=== PATIENT | female | born 1975 | race Hispanic/Latino ===

== ENCOUNTER 2018-10-03 16:58 | Emergency (ER) | payer SELFPAY ==
--- NOTE | 2018-10-03 17:30 | EDPHYS ---
Physician Documentation [facility] Name: Heaven Sun Age: 43 yrs Sex: Female : 1975 Arrival Date: 10/03/2018 Time: 17:01 Bed 27 Private MD: ED Physician Adrián Parks HPI: 10/03 17:25 This 43 yrs old Female presents to ER via Ambulatory with complaints of cp Vaginal Itching. 17:25 The patient presents with vaginal itching. Onset: The symptoms/episode began/occurred 2 cp week(s) ago. Associated signs and symptoms: Pertinent negatives: fever, vaginal bleeding, abdominal pain. Severity of symptoms: in the emergency department the symptoms are unchanged, despite home interventions. Patient has no concerns for STDs and reports similar symptoms in the past that were due to yeast infection. Patient reports she is unable use OTC creams due to allergy. 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 - Social history:: Smoking status: Patient/guardian denies using tobacco. - Ebola Screening: : No symptoms or risks identified at this time. ROS: 17:26 Constitutional: Negative for body aches, chills, fever, poor PO intake. cp 17:26 Eyes: Negative for injury, pain, redness, and discharge. cp 17:26 ENT: Negative for drainage from ear(s), ear pain, sore throat, difficulty swallowing, difficulty handling secretions. 17:26 Cardiovascular: Negative for chest pain, palpitations. 17:26 Respiratory: Negative for cough, shortness of breath, wheezing. 17:26 Abdomen/GI: Negative for abdominal pain, nausea, vomiting, and diarrhea. 17:26 Back: Negative for pain at rest, pain with movement. 17:26 : Positive for vaginal itching, Negative for urinary symptoms, vaginal discharge. 17:26 Skin: Negative for rash. 17:26 All other systems are negative. Exam: 17:27 Constitutional: The patient appears in no acute distress, alert, awake, well developed, cp well nourished. 17:27 Head/Face: Normocephalic, atraumatic. cp 17:27 Respiratory: the patient does not display signs of respiratory distress, Respirations: normal. 17:27 Abdomen/GI: Exam negative for discomfort, distension, guarding, Inspection: abdomen appears normal. 17:27 : Pelvic Exam: the exam is deferred. Vital Signs: 17:06 BP 130 / 70; Pulse 85; Resp 16 S; Temp 97.8(TE); Pulse Ox 99% on R/A; Weight 71.67 kg aa5 (R); Height 5 ft. 2 in. (157.48 cm) (R); Pain 0/10; 17:43 BP 131 / 70; Pulse 80; Resp 18; Temp 98; Pulse Ox 100% on R/A; Pain 0/10; mg2 17:06 Body Mass Index 28.90 (71.67 kg, 157.48 cm) aa5 MDM: 17:13 Patient medically screened. cp 17:29 Differential diagnosis: pelvic inflammatory disease, urinary tract infection, cp vaginosis, STD. 17:29 Data reviewed: vital signs, nurses notes, and as a result, I will discharge patient. cp Counseling: I had a detailed discussion with the patient and/or guardian regarding: the historical points, exam findings, and any diagnostic results supporting the discharge/admit diagnosis, to return to the emergency department if symptoms worsen or persist or if there are any questions or concerns that arise at home. Administered Medications: No medications were administered Disposition: 17:46 Co-signature as Attending Physician, Adrián Parks MD I agree with the assessment and kdr plan of care. Disposition: 10/03/18 17:29 Discharged to Home. Impression: Candidiasis of vulva and vagina. - Condition is Stable. - Discharge Instructions: Vaginal Yeast Infection, Adult. - Prescriptions for Diflucan 150 mg Oral Tablet - take 1 tablet by ORAL route one time As needed take second tablet 2 days later if symptoms continue; 2 tablet. - Medication Reconciliation Form, Thank You Letter, Antibiotic Education, Prescription Opioid Use form. - Follow up: Private Physician; When: 2 - 3 days; Reason: Worsening of condition. - Problem is new. - Symptoms are unchanged. Signatures: Adrián Parks MD MD kdr Dawn Oneal RN RN aa5 Robb Wagner PA PA cp Glen Christopher RN RN mg2 Corrections: (The following items were deleted from the chart) 17:44 17:29 10/03/2018 17:29 Discharged to Home. Impression: Candidiasis of vulva and vagina. mg2 Condition is Stable. Forms are Medication Reconciliation Form, Thank You Letter, Antibiotic Education, Prescription Opioid Use. Follow up: Private Physician; When: 2 - 3 days; Reason: Worsening of condition. Problem is new. Symptoms are unchanged. cp
--- NOTE | 2018-10-03 17:30 | ER ---
Nurse's Notes [facility] Name: Heaven Sun Age: 43 yrs Sex: Female : 1975 Arrival Date: 10/03/2018 Time: 17:01 Bed 27 Private MD: Diagnosis: Candidiasis of vulva and vagina Presentation: 10/03 17:05 Presenting complaint: Patient states: "I have a yeast infection". Transition of care: aa5 patient was not received from another setting of care. Onset of symptoms was September 2018. Risk Assessment: Do you want to hurt yourself or someone else? Patient reports no desire to harm self or others. Initial Sepsis Screen: Does the patient meet any 2 criteria? No. Patient's initial sepsis screen is negative. Does the patient have a suspected source of infection? No. Patient's initial sepsis screen is negative. Care prior to arrival: None. 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 - Social history:: Smoking status: Patient/guardian denies using tobacco. - Ebola Screening: : No symptoms or risks identified at this time. Screenin:42 Abuse screen: Denies threats or abuse. Denies injuries from another. Nutritional mg2 screening: No deficits noted. Tuberculosis screening: No symptoms or risk factors identified. Fall Risk None identified. Assessment: 17:43 General: Appears in no apparent distress. comfortable, Behavior is calm, cooperative. mg2 Pain: Denies pain. : Reports vaginal itching, since today. Vital Signs: 17:06 BP 130 / 70; Pulse 85; Resp 16 S; Temp 97.8(TE); Pulse Ox 99% on R/A; Weight 71.67 kg aa5 (R); Height 5 ft. 2 in. (157.48 cm) (R); Pain 0/10; 17:43 BP 131 / 70; Pulse 80; Resp 18; Temp 98; Pulse Ox 100% on R/A; Pain 0/10; mg2 17:06 Body Mass Index 28.90 (71.67 kg, 157.48 cm) aa5 ED Course: 17:01 Patient arrived in ED. mr 17:04 Arm band placed on. aa5 17:05 Triage completed. aa5 17:11 Glen Christopher, RN is Primary Nurse. mg2 17:13 Robb Wagner PA is PHCP. cp 17:13 Adrián Parks MD is Attending Physician. cp 17:42 No provider procedures requiring assistance completed. Patient did not have IV access mg2 during this emergency room visit. 17:43 Patient has correct armband on for positive identification. mg2 Administered Medications: No medications were administered Outcome: 17:29 Discharge ordered by . cp 17:43 Discharged to home ambulatory. mg2 17:43 Condition: stable 17:43 Discharge instructions given to patient, Instructed on discharge instructions, follow up and referral plans. medication usage, Demonstrated understanding of instructions, follow-up care, medications, Prescriptions given X 1. 17:44 Patient left the ED. mg2 Signatures: Shilpa Motley mr OnealDawn, RN RN aa5 Robb Wagner PA PA cp Glen Christopher, RN RN mg2
== END 2018-10-03 17:44 | disposition home or self-care (01) ==
LOC: ER 16:58
DX: B37.3 Candidiasis of vulva and vagina (principal)
CPT/HCPCS: 99282

== ENCOUNTER 2018-11-24 19:50 | Emergency (ER) | payer SELFPAY ==
--- OUTSIDE RECORDS SUMMARY | 2018-11-24 19:52 | XMS REPORT ---
:1975 [facility] Address [address] [place] [address] Care Team Providers Name Role Phone WINSOME HALEY Unavailable Unavailable Payers Payer Name Policy Type Policy Number Effective Date Expiration Date Problems This patient has no known problems. Allergies, Adverse Reactions, Alerts Allergy Name Allergy Status Severity Reaction(s) Onset Inactive Treating Comments Type Date Date Clinician hydrocodone DA Active PA 2018-01 00:00:0 0 Penicillins DA Active PA 2018-01 00:00:0 0 hydrocodone DA Active PA 2013-02 00:00:0 0 Penicillins DA Active PA 2013-02 00:00:0 0 Medications This patient has no known medications. Results Test Description Test Time Test Comments Text Results Atomic Results Result Comments URINALYSIS W/ REFLEX URINE CULTURE 2017-04-11 01:40:00 Test Item Value Reference Range Comments COLOR (BEAKER) (test ixas=819) Yellow CLARITY (BEAKER) (test uyaj=724) Clear SPECIFIC GRAVITY UA (BEAKER) (test hcrs=417) 1.016 1.001-1.035 PH UA (BEAKER) (test iiwj=600) 6.0 5.0-8.0 PROTEIN UA (BEAKER) (test nqug=985) Negative Negative GLUCOSE UA (BEAKER) (test fsnc=751) Negative Negative KETONES UA (BEAKER) (test ujpb=235) Negative Negative BILIRUBIN UA (BEAKER) (test ifdz=962) Negative Negative BLOOD UA (BEAKER) (test gyvx=319) Large Negative NITRITE UA (BEAKER) (test wkhh=979) Negative Negative LEUKOCYTE ESTERASE UA (BEAKER) (test jtoj=604) Negative Negative UROBILINOGEN UA (BEAKER) (test fian=383) < mg/dL 0.2-1.0 RBC UA (BEAKER) (test ilgy=732) 270 /HPF WBC UA (BEAKER) (test jrbf=342) 2 /HPF MUCUS (BEAKER) (test gfrv=8382) Rare SQUAMOUS EPITHELIAL (BEAKER) (test qigp=470) < /HPF SOURCE(BEAKER) (test wdhl=2101) SCREEN, [id number] 01:32:00 Test Item Value Reference Range Comments TEST URINE (BEAKER) (test pqls=541) Negative RAD, CHEST, 2 [id number] 01:14:00Reason for exam:->FEVERReason for exam: ->COUGHFINAL REPORT EXAMINATION: 2 VIEW CHEST CLINICAL INDICATION: Fever, cough IMPRESSION: Compared with 01/23/2013. No evidence of focal lung consolidation, pulmonary edema or pleural effusion. The heart size is normal. Mediastinal contours are sharp and stable. No evidence of an acute osseous abnormality or pneumothorax. In summary, no radiographic evidence of an acute cardiopulmonary process. Signed: [facility]elle [facility] Verified Date/Time: 04/11/2017 01:14:46 Reading Location: [address] Reading Room Electronically signed by: BRIELLE MCDONOUGH M.D. on 01:14 AMRAPID INFLUENZA A&B [id number] 00:29:00 Test Item Value Reference Range Comments RAPID INFLUENZA A AG (BEAKER) (test uvpg=4779) Positive Negative RAPID INFLUENZA B AG (BEAKER) (test plsd=6574) Negative Negative
--- OUTSIDE RECORDS SUMMARY | 2018-11-24 19:52 | XMS REPORT | Clinical Summary ---
:1975 Author Organization [facility] Address [address] [place] [address] Care Team Providers Name Role Phone Kelvin Garcia MD Primary Care Provider Allergies Active Allergy Reactions Severity Noted Date Comments Cephalexin 04/11/2013 Penicillins Swelling 01/23/2013 Hydrocodone-Acetaminophen Swelling 01/23/2013 Medications Medication Sig Dispensed Refills Start Date End Date Status ALPRAZolam (XANAX) Take 0.25 mg by 0 Active 0.25 MG tablet mouth every night as needed. ALPRAZolam (XANAX) Take 1 tablet 10 tablet 0 07/22/2014 Active 0.25 MG tablet (0.25 mg total) by mouth every night as needed for Anxiety. Active Problems Not on file Social History Tobacco Use Types Packs/Day Years Used Date Never Smoker Alcohol Use Drinks/Week oz/Week Comments Yes 2 Glasses of wine 3.6 week 2 Cans of beer 2 Shots of liquor Sex Assigned at Date Recorded Not on file Job Start Date Occupation Industry Not on file Not on file Not on file Travel History Travel Start Travel End No recent travel history available. Last Filed Vital Signs Not on file Plan of Treatment Not on file Results Not on fileafter 11/23/2017
[2018-11-24 20:52] LABS: Urine Culture Reflex Order REFLEXED
[2018-11-24 20:53] LABS: Urine Bacteria 20-50 /HPF (<20); Urine RBC <5 /HPF (NONE SEEN)
--- NOTE | 2018-11-24 21:05 | EDPHYS ---
Physician Documentation [facility] Name: Heaven Sun Age: 43 yrs Sex: Female : 1975 Arrival Date: 11/24/2018 Time: 19:52 Bed 13 Private MD: ED Physician Galindo Zepeda HPI: 11/24 20:44 This 43 yrs old Female presents to ER via Ambulatory with complaints of kb Vaginal Itching. 20:44 The patient presents with perineal itching, vaginal discharge, that is white discharge, kb patient has had similar discharge in the past. Onset: The symptoms/episode began/occurred 5 day(s) ago. Modifying factors: The symptoms are alleviated by nothing, the symptoms are aggravated by nothing. Associated signs and symptoms: Pertinent positives: vaginal discharge, vaginal itching. Severity of symptoms: At their worst the symptoms were moderate, in the emergency department the symptoms are unchanged. The patient has not experienced similar symptoms in the past. The patient has not recently seen a physician. Pt reports vaginal itching, white discharge, and irritation for 5 days. Feels like yeast infection she has had in the past. 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 - Social history:: Smoking status: Patient/guardian denies using tobacco. - Ebola Screening: : No symptoms or risks identified at this time. ROS: 22:38 Constitutional: Negative for fever, chills, and weight loss, Neck: Negative for injury, kb pain, and swelling, Cardiovascular: Negative for chest pain, palpitations, and edema, Respiratory: Negative for shortness of breath, cough, wheezing, and pleuritic chest pain, Abdomen/GI: Negative for abdominal pain, nausea, vomiting, diarrhea, and constipation, Back: Negative for injury and pain, MS/Extremity: Negative for injury and deformity, Skin: Negative for injury, rash, and discoloration, Neuro: Negative for headache, weakness, numbness, tingling, and seizure. 22:38 : Positive for vaginal discharge, vaginal itching. Exam: 22:38 Constitutional: This is a well developed, well nourished patient who is awake, alert, kb and in no acute distress. Head/Face: Normocephalic, atraumatic. ENT: Nares patent. No nasal discharge, no septal abnormalities noted. Tympanic membranes are normal and external auditory canals are clear. Oropharynx with no redness, swelling, or masses, exudates, or evidence of obstruction, uvula midline. Mucous membranes moist. Neck: Trachea midline, no thyromegaly or masses palpated, and no cervical lymphadenopathy. Supple, full range of motion without nuchal rigidity, or vertebral point tenderness. No Meningismus. Chest/axilla: Normal chest wall appearance and motion. Nontender with no deformity. No lesions are appreciated. Cardiovascular: Regular rate and rhythm with a normal S1 and S2. No gallops, murmurs, or rubs. Normal PMI, no JVD. No pulse deficits. Respiratory: Lungs have equal breath sounds bilaterally, clear to auscultation and percussion. No rales, rhonchi or wheezes noted. No increased work of breathing, no retractions or nasal flaring. Abdomen/GI: Soft, non-tender, with normal bowel sounds. No distension or tympany. No guarding or rebound. No evidence of tenderness throughout. Skin: Warm, dry with normal turgor. Normal color with no rashes, no lesions, and no evidence of cellulitis. MS/ Extremity: Pulses equal, no cyanosis. Neurovascular intact. Full, normal range of motion. Neuro: Awake and alert, GCS 15, oriented to person, place, time, and situation. Cranial nerves II-XII grossly intact. Motor strength 5/5 in all extremities. Sensory grossly intact. Cerebellar exam normal. Normal gait. Vital Signs: 20:08 BP 116 / 63; Pulse 80; Resp 16; Temp 98; Pulse Ox 99% on R/A; Weight 61.23 kg (R); ak1 Height 5 ft. 2 in. (157.48 cm) (R); Pain 10/10; 20:08 Body Mass Index 24.69 (61.23 kg, 157.48 cm) ak1 MDM: 20:16 Patient medically screened. kb 22:38 Data reviewed: vital signs, nurses notes. Data interpreted: Pulse oximetry: on room air kb is 99 %. Interpretation: normal. Counseling: I had a detailed discussion with the patient and/or guardian regarding: the historical points, exam findings, and any diagnostic results supporting the discharge/admit diagnosis, the need for outpatient follow up, an OB/Gyne specialist, to return to the emergency department if symptoms worsen or persist or if there are any questions or concerns that arise at home. 11/24 20:17 Order name: Urine Microscopic Only; Complete Time: 20:55 kb 11/24 20:17 Order name: Urine Dipstick-Ancillary (obtain specimen); Complete Time: 20:28 kb Administered Medications: 21:18 Drug: DiFLUcan 150 mg Route: PO; aa1 21:19 Follow up: Response: No adverse reaction; Medication administered at discharge. aa1 Disposition: 11/25 07:08 Available for consultation at all times.. ps1 Disposition: 11/24/18 21:05 Discharged to Home. Impression: Candidiasis of vulva and vagina. - Condition is Stable. - Discharge Instructions: Vaginal Yeast Infection, Adult. - Prescriptions for Diflucan 150 mg Oral Tablet - take 1 tablet by ORAL route one time for 1 day; 1 tablet. - Medication Reconciliation Form, Thank You Letter, Antibiotic Education, Prescription Opioid Use form. - Follow up: Emergency Department; When: As needed; Reason: Worsening of condition. Follow up: Private Physician; When: 2 - 3 days; Reason: Recheck today's complaints, Continuance of care, Re-evaluation by your physician. Signatures: Dispatcher [employer] EDAL Sabina Soto, TANGELA-C CARGO SERVICE SUPERVISOR-Lexus Holloway RN RN aa1 Thalia Reeder RN RN ak1 Galindo Zepeda MD MD ps1 Corrections: (The following items were deleted from the chart) 11/24 21:19 21:05 11/24/2018 21:05 Discharged to Home. Impression: Candidiasis of vulva and vagina. aa1 Condition is Stable. Forms are Medication Reconciliation Form, Thank You Letter, Antibiotic Education, Prescription Opioid Use. Follow up: Emergency Department; When: As needed; Reason: Worsening of condition. Follow up: Private Physician; When: 2 - 3 days; Reason: Recheck today's complaints, Continuance of care, Re-evaluation by your physician. kb
--- NOTE | 2018-11-24 21:05 | ER ---
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 [place] laundry soap. Transition of care: patient was not received from another setting of care. Onset of symptoms is unknown. Risk Assessment: Do you want to hurt yourself or someone else? Patient reports no desire to harm self or others. Initial Sepsis Screen: Does the patient meet any 2 criteria? No. Patient's initial sepsis screen is negative. Does the patient have a suspected source of infection? No. Patient's initial sepsis screen is negative. Care prior to arrival: None. 20:09 Method Of Arrival: Ambulatory ak1 20:09 Acuity: ABIGAIL 4 ak1 Triage Assessment: 20:11 General: Appears in no apparent distress. Behavior is calm, cooperative. 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 - Social history:: Smoking status: Patient/guardian denies using tobacco. - Ebola Screening: : No symptoms or risks identified at this time. Screenin:30 Abuse screen: Denies threats or abuse. Denies injuries from another. Nutritional aa1 screening: No deficits noted. Tuberculosis screening: No symptoms or risk factors identified. Fall Risk None identified. Assessment: 20:30 General: Appears in no apparent distress. comfortable, Behavior is calm, cooperative, aa1 appropriate for age. Pain: Denies pain. Neuro: Level of Consciousness is awake, alert, obeys commands, Oriented to person, place, time, situation, Moves all extremities. Full function Gait is steady. Respiratory: Airway is patent Respiratory effort is even, unlabored, Respiratory pattern is regular, symmetrical. GI: No signs and/or symptoms were reported involving the gastrointestinal system. : Reports discharge, from vagina that is white, vaginal itching. EENT: No signs and/or symptoms were reported regarding the EENT system. Derm: Skin is intact, is healthy with good turgor, Skin is pink, warm \T\ dry. Musculoskeletal: Circulation, motion, and sensation intact. Capillary refill < 3 seconds. 21:17 Reassessment: Patient appears in no apparent distress at this time. Patient is alert, aa1 oriented x 3, equal unlabored respirations, skin warm/dry/pink. Discussed d/c \T\ f/u instructions with pt; denies questions or concerns at this time. Vital Signs: 20:08 BP 116 / 63; Pulse 80; Resp 16; Temp 98; Pulse Ox 99% on R/A; Weight 61.23 kg (R); ak1 Height 5 ft. 2 in. (157.48 cm) (R); Pain 10/10; 20:08 Body Mass Index 24.69 (61.23 kg, 157.48 cm) ak1 ED Course: 19:52 Patient arrived in ED. ag3 20:08 Arm band placed on Patient placed in waiting room, Patient notified of wait time. ak1 20:10 Triage completed. ak1 20:15 Sabina Soto FNP-C is [facility]. kb 20:15 Galindo Zepeda MD is Attending Physician. kb 20:30 Patient has correct armband on for positive identification. Bed in low position. Call aa1 light in reach. Pulse ox on. NIBP on. 20:30 No provider procedures requiring assistance completed. Patient did not have IV access aa1 during this emergency room visit. 21:10 Lexus Rivera, SILKE is Primary Nurse. aa1 Administered Medications: 21:18 Drug: DiFLUcan 150 mg Route: PO; aa1 21:19 Follow up: Response: No adverse reaction; Medication administered at discharge. aa1 Outcome: 21:05 Discharge ordered by . kb 21:17 Discharged to home ambulatory. aa1 21:17 Condition: good 21:17 Discharge instructions given to patient, Instructed on discharge instructions, follow up and referral plans. medication usage, Demonstrated understanding of instructions, follow-up care, medications, Prescriptions given X 1. 21:19 Patient left the ED. aa1 Signatures: Sabina Soto, KARIN HONEYCUTT-Lexus Holloway RN RN aa1 Thalia Reeder RN RN ak1 Jenelle Okeefe ag3
[2018-11-24] MEDS ORDERED: FLUCONAZOLE 100 MG TAB ONE (21:17)
== END 2018-11-24 21:19 | disposition home or self-care (01) ==
LOC: ER 19:50
DX: B37.3 Candidiasis of vulva and vagina (principal); Z88.0 Allergy status to penicillin
CPT/HCPCS: 81015; 99283

== ENCOUNTER 2019-06-22 11:18 | Emergency (ER) | payer BC, SELFPAY ==
--- OUTSIDE RECORDS SUMMARY | 2019-06-22 11:20 | XMS REPORT ---
:1975 [facility] Address [address] [place] [address] Care Team Providers Name Role Phone WINSOME HALEY Unavailable Unavailable Payers Payer Name Policy Type Policy Number Effective Date Expiration Date Problems This patient has no known problems. Allergies, Adverse Reactions, Alerts Allergy Name Allergy Status Severity Reaction(s) Onset Inactive Treating Comments Type Date Date Clinician hydrocodone DA Active CT 2018-01 00:00:0 [address] 2018-01 00:00:0 [address] 2013-02 00:00:0 [address] 2013-02 00:00:0 0 Medications This patient has no known medications. Results Test Description Test Time Test Comments Text Results Atomic Results Result Comments URINALYSIS W/ REFLEX URINE CULTURE 2017-04-11 01:40:00 Test Item Value Reference Range Comments COLOR (BEAKER) (test jook=014) Yellow CLARITY (BEAKER) (test ctim=620) Clear SPECIFIC GRAVITY UA (BEAKER) (test drdx=025) 1.016 1.001-1.035 PH UA (BEAKER) (test hcuw=292) 6.0 5.0-8.0 PROTEIN UA (BEAKER) (test pphq=387) Negative Negative GLUCOSE UA (BEAKER) (test irsn=300) Negative Negative KETONES UA (BEAKER) (test ljhd=822) Negative Negative BILIRUBIN UA (BEAKER) (test nbqz=682) Negative Negative BLOOD UA (BEAKER) (test bxsp=990) Large Negative NITRITE UA (BEAKER) (test akff=912) Negative Negative LEUKOCYTE ESTERASE UA (BEAKER) (test lyml=788) Negative Negative UROBILINOGEN UA (BEAKER) (test mipr=934) < mg/dL 0.2-1.0 RBC UA (BEAKER) (test unrt=698) 270 /HPF WBC UA (BEAKER) (test hwhs=659) 2 /HPF MUCUS (BEAKER) (test jwii=2635) Rare SQUAMOUS EPITHELIAL (BEAKER) (test vfgi=178) < /HPF SOURCE(BEAKER) (test gdwm=4718) SCREEN, [id number] 01:32:00 Test Item Value Reference Range Comments TEST URINE (BEAKER) (test ljiu=999) Negative RAD, CHEST, 2 [id number] 01:14:00Reason for exam:->FEVERReason for exam: ->COUGHFINAL REPORT EXAMINATION: 2 VIEW CHEST CLINICAL INDICATION: Fever, cough IMPRESSION: Compared with 01/23/2013. No evidence of focal lung consolidation, pulmonary edema or pleural effusion. The heart size is normal. Mediastinal contours are sharp and stable. No evidence of an acute osseous abnormality or pneumothorax. In summary, no radiographic evidence of an acute cardiopulmonary process. Signed: [facility] Verified Date/Time: 04/11/2017 01:14:46 Reading Location: [address] Reading Room Electronically signed by: BRIELLE MCDONOUGH M.D. on 01:14 AMRAPID INFLUENZA A&B [id number] 00:29:00 Test Item Value Reference Range Comments RAPID INFLUENZA A AG (BEAKER) (test etne=2808) Positive Negative RAPID INFLUENZA B AG (BEAKER) (test mtsz=3785) Negative Negative
--- NOTE | 2019-06-22 13:01 | ER ---
Nurse's Notes [facility] Name: Heaven Sun Age: 44 yrs Sex: Female : 1975 Arrival Date: 06/22/2019 Time: 11:20 Bed Waiting Private MD: Diagnosis: Presentation: 06/21 11:27 Chief complaint: Patient states: L low back pain that radiates down L leg x 1 week. ss Coronavirus screen: The patient has NOT traveled to [place] in the past 14 days. Proceed with normal triage procedures. Ebola Screen: Patient denies exposure to infectious person. Patient denies travel to an Ebola-affected area in the 21 days before illness onset. Initial Sepsis Screen: Does the patient meet any 2 criteria? No. Patient's initial sepsis screen is negative. Does the patient have a suspected source of infection? No. Patient's initial sepsis screen is negative. Risk Assessment: Do you want to hurt yourself or someone else? Patient reports no desire to harm self or others. 11:27 Method Of Arrival: Ambulatory 11:27 Acuity: ABIGAIL 4 ss Assessment: 12:44 Reassessment: Called patient to exam room. No answer. Unable to locate patient in ER ss [facility] or restrooms. 12:57 Reassessment: No answer, unable to locate patient. 12:59 Reassessment: called patient from [facility], no answer. Vital Signs: 11:27 Resp 16; Temp 98.0(TE); Weight 65.77 kg; Height 5 ft. 2 in. (157.48 cm); Pain 10/10; ss 11:28 BP 115 / 81; Pulse 94; Pulse Ox 99% on R/A; ss 11:27 Body Mass Index 26.52 (65.77 kg, 157.48 cm) ED Course: 11:20 Patient arrived in ED. mr 11:28 Triage completed. ss 11:28 Arm band placed on right wrist. 12:59 No provider procedures requiring assistance completed. Patient did not have IV access ss during this emergency room visit. Administered Medications: No medications were administered Outcome: 12:59 Eloped from waiting room, before seeing physician ss 13:00 Patient left the ED. Signatures: Shilpa Motley Shelby, RN RN
[2019-06-22 13:05] VITALS: TEMP 98
[2019-06-22 13:06] VITALS: BP 115/81; O2SAT 99
== END 2019-06-22 13:00 | disposition left against medical advice (07) ==
LOC: ER 11:18
DX: M54.5 Low back pain (principal); Z53.21 Procedure and treatment not carried out due to patient leaving prior to being seen by health care provider
CPT/HCPCS: 99281

== ENCOUNTER 2020-04-24 22:09 | Emergency (ER) | payer SELFPAY ==
--- OUTSIDE RECORDS SUMMARY | 2020-04-24 22:12 | XMS REPORT | Continuity of Care Document ---
:1975 Author Organization [facility] Address [address] [place] [address] Care Team Providers Name Role Phone Jose WILKINSON, Kelvin Winn Primary Care Physician MUSTAPHA HALEY Attending Clinician Unavailable Payers Payer Name Policy Type Policy Number Effective Date Expiration Date S ource Problems This patient has no known problems. Allergies, Adverse Reactions, Alerts Allergy Allergy Status Severity Reaction(s) Onset Inactive Treating Comm ents Source Name Type Date Date Clinician hydrocod DA Active OR 2017-04 [facility] [place] 00:[facility]: [facility] 00 [facility] Penicill DA Active OR 2017-04 [facility] 0[facility] [place] 00:[facility]: [facility] [address] [place] [address] Cephalex Propensi Active 2012-[address] [facility] ty to 2-21 [facility] - adverse 00:[facility]: Medical reaction 00 Center s hydrocod DA Active OR 2012-04 [facility] 1-20 [place] 00:00: Region[facility] 00 [facility] Penicill DA Active OR 2012-04 [facility] 1-20 [place] 00:00: Regiona [address] [place] [address] Penicill Drug Active Swelling 2012-[address] [facility] ins Allergy 0-04 [facility]: Medical 00 Center Hydrocod Drug Active Swelling 2012-[address] [facility] one-Acet Allergy 0-04 [facility] aminophe 00:00: Medical n 00 Center Social History Social Habit Start Date Stop Date Quantity Comments Source Sex Assigned At [facility] Alcohol intake 2014-07-25 2014-07-25 Current drinker GENEVIEVE castillo [facility] (finding) Alcohol Comment 2013-11-11 2013-11-11 week [facility] - 00:[facility]:00 [facility]00 [facility] Center Smoking Status Start Date Stop Date Source Never smoker [facility] Medications Ordered Filled Start Stop Current Ordering Indication Dosage Frequency Signature Comments Components Source Medication Medication Date Date Medication? Clinician (SIG) Name Name ALPRAZolam Yes .25mg Take 0.[address] (XANAX) 4-02 mg by [facility] - 0.25 MG 20:30: mouth Medical tablet 45 every Center night as needed. ALPRAZolam Yes .25mg Take [address] [facility] (XANAX) 4-02 tablet [facility] - 0.25 MG 00:00: (0.25 mg Medica l tablet 00 total) by Center mouth every night as needed for Anxiety. Procedures This patient has no known procedures. Results Test Description Test Time Test Comments Results Result Comments Source URINALYSIS W/ REFLEX URINE CULTURE 2017-04-11 01:40:00 Test Item Value Reference Range Interpretation Comme nts COLOR (BEAKER) (test code = 470) Yellow CLARITY (BEAKER) (test code = 469) Clear SPECIFIC GRAVITY UA (BEAKER) (test code = 468) 1.016 1.001-1 .035 PH UA (BEAKER) (test code = 467) 6.0 5.0-8.0 PROTEIN UA (BEAKER) (test code = 464) Negative Negative GLUCOSE UA (BEAKER) (test code = 365) Negative Negative KETONES UA (BEAKER) (test code = 371) Negative Negative BILIRUBIN UA (BEAKER) (test code = 462) Negative Negative BLOOD UA (BEAKER) (test code = 461) Large Negative A NITRITE UA (BEAKER) (test code = 465) Negative Negative LEUKOCYTE ESTERASE UA (BEAKER) (test code = 466) Negative Negat ivan UROBILINOGEN UA (BEAKER) (test code = 463) < mg/dL 0.2-1.0 RBC UA (BEAKER) (test code = 519) 270 /HPF WBC UA (BEAKER) (test code = 520) 2 /HPF MUCUS (BEAKER) (test code = 1574) Rare SQUAMOUS EPITHELIAL (BEAKER) (test code = 516) < /HPF SOURCE(BEAKER) (test code = 2795) SCREEN, [id number] 01:32:00 Test Item Value Reference Range Interpretation Comments TEST URINE (BEAKER) (test Negative code = 583) RAD, CHEST, 2 [id number] 01:14:00Reason for exam:->FEVERReason for exam:->COUGHFINAL REPORT EXAMINATION: 2 VIEW CHEST CLINICAL INDICATION: Fever, cough IMPRESSION: Compared with 01/23/2013. No evidence of focal lung consolidation, pulmonary edema or pleural effusion. The heart size is normal. Mediastinal contours are sharp and stable. No evidence of an acute osseous abnormality or pneumothorax. In summary, no radiographic evidence of an acute cardiopulmonary process. Signed: Cale Mcdonough [facility] Verified Date/Time: 04/11/2017 01:14:46 Reading Location: [address] Reading Room RAPID INFLUENZA A&B [id number] 00:29:00 Test Item Value Reference Range Interpretation Comments RAPID INFLUENZA A AG (BEAKER) (test Positive Negative AA code = 1622) RAPID INFLUENZA B AG (BEAKER) (test Negative Negative code = 1623)
--- OUTSIDE RECORDS SUMMARY | 2020-04-24 22:12 | XMS REPORT | Clinical Summary ---
:1975 Author Organization [facility] Address [address] [place] [address] Care Team Providers Name Role Phone Tatum Garcia MD Primary Care Provider Allergies Active [...] oz/Week Comments Yes 2 Glasses of wine 6.0 week 2 Cans of beer 2 Shots of liquor Sex Assigned at Date Recorded Not on file Last Filed Vital Signs Not on file Plan of Treatment Not on file Results Not on fileafter 04/24/2019
[2020-04-24 23:59] LABS: Urine Bacteria 20-50 /HPF (<20); Urine RBC <5 /HPF (NONE SEEN)
[2020-04-25] MEDS ORDERED: AZITHROMYCIN 250 MG TAB ONE (00:27)
[2020-04-25] MEDS ORDERED: CIPROFLOXACIN HCL 500 MG TAB ONE (00:28)
--- NOTE | 2020-04-25 00:32 | EDPHYS ---
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 - Social history:: Smoking status: Patient denies any tobacco usage or history of. Vital Signs: 23:13 BP 105 / 81; Pulse 87; Resp 16; Temp 98.4(TE); Pulse Ox 98% on R/A; Weight 73.48 kg lp1 (R); Height 5 ft. 2 in. (157.48 cm); 23:13 Body Mass Index 29.63 (73.48 kg, 157.48 cm) lp1 MDM: 04/25 00:31 Patient medically screened. 4 04/24 23:39 Order name: Urine Dipstick--Ancillary (enter results) [facility] 04/24 23:39 Order name: Urine --Ancillary (enter results) [facility] 04/24 23:39 Order name: Urine Culture [facility] 04/24 23:39 Order name: Urine Microscopic Only [facility] 04/24 23:39 Order name: Urine Dipstick-Ancillary (obtain specimen); Complete Time: 00:15 [facility] 04/24 23:39 Order name: Urine Test (obtain specimen); Complete Time: 00:15 [facility] Administered Medications: 00:15 Drug: Zithromax 1 grams Route: PO; lp1 00:48 Follow up: Response: Medication administered at discharge. lp1 00:15 Drug: Cipro 500 mg Route: PO; lp1 00:48 Follow up: Response: Medication administered at discharge. lp1 Disposition: 04/25/20 00:31 Discharged to Home. Impression: vagintis. - Condition is Stable. - Discharge Instructions: Vaginitis. - Prescriptions for Doxycycline Hyclate 100 mg Oral Tablet - take 1 tablet by ORAL route every 12 hours; 20 tablet. - Medication Reconciliation Form, Thank You Letter, Antibiotic Education, Prescription Opioid Use form. - Follow up: Private Physician; When: Upon discharge from the Emergency Department; Reason: Recheck today's complaints, Continuance of care, Re-evaluation by your physician. - Problem is new. - Symptoms are unchanged. Addendum: 05/13/2020 12:08 Addendum: HPI: Pt is a 44 year old female that comes to the ED with a complaint of STD t w4 exposure. Pt states that she has had vaginal discharge with odor. Pt also states that she believes that her has lyndsay cheating on her and possibly gave her an STD. Addendum: ROS: Constitutional: negative for fever and chills HEENT: negative for sore throat, ear pain Resp: negative for SOB, ROTH CV: negative for CP, palpitations Abdomen: negative for ab pain , nausea, vomiting : positive for vaginal discharge Ext: negative for edema, injury Neuro: negative for weakness, numbness, gait disturbances. Signatures: Dispatcher [employer] EDMS Beverly Witt RN RN lp1 Bora Hester MD MD tw4 Roxana Omalley mw2 Corrections: (The following items were deleted from the chart) 04/25 00:50 00:31 04/25/2020 00:31 Discharged to Home. Impression: vagintis. Condition is Stable. lp1 Forms are Medication Reconciliation Form, Thank You Letter, Antibiotic Education, Prescription Opioid Use. Follow up: Private Physician; When: Upon discharge from the Emergency Department; Reason: Recheck today's complaints, Continuance of care, Re-evaluation by your physician. Problem is new. Symptoms are unchanged. tw4
--- NOTE | 2020-04-25 00:32 | ER ---
Nurse's Notes [facility] Name: Heaven Sun Age: 44 yrs Sex: Female : 1975 Arrival Date: 04/24/2020 Time: 22:59 Bed Waiting Private MD: Diagnosis: vagintis Presentation: 04/24 23:08 Chief complaint: Patient states: "I just found out my was cheating on me and I lp1 think I may have an STD"; Vaginal discharge began 3 days ago, brown in color, odorous, some pelvic pain. Coronavirus screen: Client denies travel out of the [place] in the last 14 days. At this time, the client does not indicate any symptoms associated with coronavirus-19. Ebola Screen: No symptoms or risks identified at this time. Risk Assessment: Do you want to hurt yourself or someone else? Patient reports no desire to harm self or others. Onset of symptoms was April 22, 2020. 23:08 Method Of Arrival: Ambulatory lp1 23:08 Acuity: ABIGAIL 4 lp1 23:13 Initial Sepsis Screen: Does the patient meet any 2 criteria? No. Patient's initial lp1 sepsis screen is negative. Does the patient have a suspected source of infection? No. Patient's initial sepsis screen is negative. 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 - Social history:: Smoking status: Patient denies any tobacco usage or history of. Screenin/04 00:16 Abuse screen: Denies threats or abuse. Denies injuries from another. Nutritional lp1 screening: No deficits noted. Tuberculosis screening: No symptoms or risk factors identified. Fall Risk None identified. Assessment: 00:16 General: Appears in no apparent distress. Behavior is calm, cooperative, appropriate lp1 for age. Pain: Denies pain. Neuro: No deficits noted. Cardiovascular: No deficits noted. Respiratory: No deficits noted. GI: No signs and/or symptoms were reported involving the gastrointestinal system. : Reports discharge, from vagina that is malodorous, since 3 days ago. EENT: No signs and/or symptoms were reported regarding the EENT system. Derm: Skin is pink, warm \\T\\ dry. Musculoskeletal: No deficits noted. 00:16 Reassessment: Dr. Hester assessing patient. lp1 Vital Signs: 04/24 23:13 BP 105 / 81; Pulse 87; Resp 16; Temp 98.4(TE); Pulse Ox 98% on R/A; Weight 73.48 kg lp1 (R); Height 5 ft. 2 in. (157.48 cm); 23:13 Body Mass Index 29.63 (73.48 kg, 157.48 cm) lp1 ED Course: 22:59 Patient arrived in ED. es 23:10 Triage completed. lp1 23:11 Arm band placed on right wrist. lp1 23:58 Bora Hester MD is Attending Physician. tw4 04/25 00:15 Beverly Witt, RN is Primary Nurse. lp1 00:17 Patient has correct armband on for positive identification. lp1 00:17 No provider procedures requiring assistance completed. Patient did not have IV access lp1 during this emergency room visit. Administered Medications: 00:15 Drug: Zithromax 1 grams Route: PO; lp1 00:48 Follow up: Response: Medication administered at discharge. lp1 00:15 Drug: Cipro 500 mg Route: PO; lp1 00:48 Follow up: Response: Medication administered at discharge. lp1 Outcome: 00:31 Discharge ordered by . tw4 00:49 Discharged to home ambulatory. lp1 00:49 Condition: good 00:49 Discharge instructions given to patient, Instructed on discharge instructions, follow up and referral plans. medication usage, Demonstrated understanding of instructions, follow-up care, medications, Prescriptions given X 1. 00:50 Patient left the ED. lp1 Signatures: Cristine Ballard Laura, RN RN lp1 Bora Hester MD MD tw4
[2020-04-25 01:09] VITALS: BP 105/81; TEMP 98.4; O2SAT 98
[2020-04-25 06:12] LABS: Urine Blood 2+ (NEG); Urine Glucose NEGATIVE (NEG); Urine Protein NEGATIVE (NEG); Urine Specific Gravity >1.030 (1.005-1.030); Urine pH 6.5 (5.0-7.0)
== END 2020-04-25 00:50 | disposition home or self-care (01) ==
LOC: ER 22:09
DX: N76.0 Acute vaginitis (principal); Z88.0 Allergy status to penicillin
CPT/HCPCS: 81003; 81015; 81025; 87086; 87088; 99283

== ENCOUNTER 2021-01-25 22:14 | Emergency (ER) | payer SELFPAY ==
[2021-01-25] MEDS ORDERED: ONDANSETRON 4 MG/2 ML VIAL ONE (23:25)
[2021-01-25] MEDS ORDERED: NA CHLORIDE 0.9% 1,000 ML ONE (23:25)
[2021-01-25 23:54] LABS: Albumin 3.1 g/dL (3.4-5.0); Bilirubin Direct 0.1 mg/dL (0-0.2); Bilirubin Total 0.4 mg/dL (0.2-1.0); Potassium 3.5 mmol/L (3.5-5.1); Protein, Total 7.7 g/dL (6.4-8.2)
[2021-01-25 23:57] LABS: Absolute Lymphocytes (CBC) 0.7 K/uL (0.7-4.9); Basophils % 0.3 % (0-1.3); Hematocrit 37.1 % (36.0-45.0); Lymphocytes % 24.7 % (15.3-44.8); MPV 8.6 fL (7.6-11.3); RBC Red Blood Cell Count 4.55 M/uL (3.86-4.86)
--- NOTE | 2021-01-25 23:59 | ER ---
Nurse's Notes [facility] Name: Heaven Sun Age: 45 yrs Sex: Female : 1975 Arrival Date: 01/25/2021 Time: 22:18 Bed 8 Private MD: Diagnosis: Vomiting without nausea-COVID - 19 Presentation: 01/25 22:34 Chief complaint: Patient states: covid positive for 9 days, N/V/D worsening, pt getting bs2 weak and unable to eat. Coronavirus screen: diarrhea, fatigue, muscle pain, nausea, loss of taste or smell, vomiting. Ebola Screen: No symptoms or risks identified at this time. Initial Sepsis Screen: Does the patient meet any 2 criteria? No. Patient's initial sepsis screen is negative. Does the patient have a suspected source of infection? No. Patient's initial sepsis screen is negative. Risk Assessment: Do you want to hurt yourself or someone else? Patient reports no desire to harm self or others. Onset of symptoms was January 25, 2021. 22:34 Method Of Arrival: Ambulatory bs2 22:34 Acuity: ABIGAIL 3 bs2 Triage Assessment: 22:40 General: Appears uncomfortable, well groomed, well developed, Behavior is cooperative, bs2 appropriate for age, flat. Pain: Complains of pain in generalized body aches. Respiratory: Reports shortness of breath on exertion Onset: The symptoms/episode began/occurred gradually, the patient has mild shortness of breath. GI: Reports diarrhea, indigestion, intolerance of fluids, intolerance of food, nausea, vomiting. Historical: - Allergies: 22:40 PENICILLINS; bs2 22:40 Vicodin; bs2 - Home Meds: 22:40 None [Active]; bs2 - PSHx: 22:40 Cholecystectomy; Eye; cervical fusion; bs2 - Immunization history:: Adult Immunizations not immunized, Client reports having NOT received the Covid vaccine. - Social history:: Smoking status: Patient denies any tobacco usage or history of. - Family history:: not pertinent. Screenin:10 Abuse screen: Denies threats or abuse. Nutritional screening: No deficits noted. cw2 Tuberculosis screening: No symptoms or risk factors identified. Fall Risk IV access (20 points). Assessment: 23:10 General: Appears in no apparent distress. Behavior is calm, cooperative. Pain: Denies cw2 pain. Neuro: No deficits noted. Cardiovascular: No deficits noted. Rhythm is sinus rhythm. Respiratory: No deficits noted. Airway is patent Respiratory effort is even. GI: Abdomen is flat, Bowel sounds present X 4 quads. : No deficits noted. 23:10 Respiratory: Breath sounds are clear bilaterally. cw2 01/26 00:16 Reassessment: Patient appears in no apparent distress at this time. No changes from 2 previously documented assessment. Vital Signs: 01/25 22:34 BP 129 / 79; Pulse 99; Resp 20; Temp 98.4(O); Pulse Ox 97% on R/A; Weight 72.57 kg (R); bs2 Height 5 ft. 2 in. (157.48 cm) (R); Pain 8/10; 23:10 BP 104 / 70; Pulse 89; Resp 16; Pulse Ox 98% on R/A; cw2 01/26 00:10 BP 111 / 69; Pulse 88; Resp 17; Temp 98.7; Pulse Ox 99% on R/A; cw2 01/25 22:34 Body Mass Index 29.26 (72.57 kg, 157.48 cm) bs2 ED Course: 01/25 22:18 Patient arrived in ED. bp1 22:40 Triage completed. bs2 22:40 Arm band placed on right wrist. bs2 22:53 [place] MD is Attending Physician. ma2 23:09 El Padilla, RN is Primary Nurse. cw2 23:10 Patient has correct armband on for positive identification. Bed in low position. Call cw2 light in reach. Side rails up X2. 23:10 No provider procedures requiring assistance completed. Initial lab(s) drawn, by ED cw2 staff, sent to lab. Inserted saline lock: 20 gauge in left antecubital area, using aseptic technique. Blood collected. 23:21 Basic Metabolic Panel Sent. cw2 01/26 00:16 IV discontinued, intact. cw2 Administered Medications: 01/25 23:10 Drug: NS 0.9% 1000 ml Route: IV; Rate: 1 bolus; Site: left antecubital; cw2 01/26 00:18 Follow up: IV Status: Completed infusion; IV Intake: 1000ml cw2 01/25 23:10 Drug: Zofran (Ondansetron) 4 mg Route: IVP; Site: left antecubital; cw2 01/26 00:18 Follow up: Response: Nausea is decreased cw2 01/25 23:20 Drug: Pepcid (famotidine) 20 mg Route: IVP; Site: left antecubital; cw2 01/26 00:17 Follow up: Response: Nausea is decreased cw2 Intake: 00:18 IV: 1000ml; Total: 1000ml. cw2 Outcome: 01/25 23:10 Condition: good cw2 23:58 Discharge ordered by . morgan 01/26 00:33 Patient left the ED. cw2 Signatures: [place] MD MD ma2 Yana Bolaños Bridget, RN RN bs2 El Padilla RN RN cw2
--- NOTE | 2021-01-25 23:59 | EDPHYS ---
Physician Documentation [facility] Name: Heaven Sun Age: 45 yrs Sex: Female : 1975 Arrival Date: 01/25/2021 Time: 22:18 Bed 8 Private MD: ED Physician [place] HPI: 01/25 23:04 This 45 yrs old Female presents to ER via Ambulatory with complaints of ma2 Shortness Of Breath, Covid+. 23:04 Onset: The symptoms/episode began/occurred gradually, 1 week(s) ago. Associated signs ma2 and symptoms: Pertinent negatives: diaphoresis, fever, nausea. Severity of symptoms: At their worst the symptoms were mild in the emergency department the symptoms are unchanged. The patient has experienced similar episodes in the past. Is been having Covid for 9 days, here because she has uncontrolled vomiting diarrhea, generalized weakness feels dehydrated. No respiratory symptoms cough. No pain anywhere else. No abdominal pain.. Historical: - Allergies: 22:40 PENICILLINS; bs2 22:40 Vicodin; bs2 - Home Meds: 22:40 None [Active]; bs2 - PSHx: 22:40 Cholecystectomy; Eye; cervical fusion; bs2 - Immunization history:: Adult Immunizations not immunized, Client reports having NOT received the Covid vaccine. - Social history:: Smoking status: Patient denies any tobacco usage or history of. - Family history:: not pertinent. ROS: 23:04 Constitutional: Negative for fever, chills, and weight loss. ma2 23:04 All other systems are negative. Exam: 23:04 Constitutional: This is a well developed, well nourished patient who is awake, alert, ma2 and in no acute distress. Head/Face: Normocephalic, atraumatic. Eyes: Pupils equal round and reactive to light, extra-ocular motions intact. Lids and lashes normal. Conjunctiva and sclera are non-icteric and not injected. Cornea within normal limits. Periorbital areas with no swelling, redness, or edema. ENT: Nares patent. No nasal discharge, no septal abnormalities noted. Tympanic membranes are normal and external auditory canals are clear. Oropharynx with no redness, swelling, or masses, exudates, or evidence of obstruction, uvula midline. Mucous membranes moist. Neck: Trachea midline, no thyromegaly or masses palpated, and no cervical lymphadenopathy. Supple, full range of motion without nuchal rigidity, or vertebral point tenderness. No Meningismus. Chest/axilla: Normal chest wall appearance and motion. Nontender with no deformity. No lesions are appreciated. Cardiovascular: Regular rate and rhythm with a normal S1 and S2. No gallops, murmurs, or rubs. Normal PMI, no JVD. No pulse deficits. Respiratory: Lungs have equal breath sounds bilaterally, clear to auscultation and percussion. No rales, rhonchi or wheezes noted. No increased work of breathing, no retractions or nasal flaring. Abdomen/GI: Soft, non-tender, with normal bowel sounds. No distension or tympany. No guarding or rebound. No evidence of tenderness throughout. Back: No spinal tenderness. No costovertebral tenderness. Full range of motion. Skin: Warm, dry with normal turgor. Normal color with no rashes, no lesions, and no evidence of cellulitis. MS/ Extremity: Pulses equal, no cyanosis. Neurovascular intact. Full, normal range of motion. Neuro: Awake and alert, GCS 15, oriented to person, place, time, and situation. Cranial nerves II-XII grossly intact. Motor strength 5/5 in all extremities. Sensory grossly intact. Cerebellar exam normal. Normal gait. Vital Signs: 22:34 BP 129 / 79; Pulse 99; Resp 20; Temp 98.4(O); Pulse Ox 97% on R/A; Weight 72.57 kg (R); bs2 Height 5 ft. 2 in. (157.48 cm) (R); Pain 8/10; 23:10 BP 104 / 70; Pulse 89; Resp 16; Pulse Ox 98% on R/A; cw2 01/26 00:10 BP 111 / 69; Pulse 88; Resp 17; Temp 98.7; Pulse Ox 99% on R/A; cw2 01/25 22:34 Body Mass Index 29.26 (72.57 kg, 157.48 cm) bs2 MDM: 01/25 22:53 Patient medically screened. ma2 23:04 Differential diagnosis: Bronchitis reactive airway disease, COVID-19 COVID-19 ma2 gastritis, gastroenteritis. 23:57 Data reviewed: vital signs, nurses notes, EMS record. Counseling: I had a detailed vt2 discussion with the patient and/or guardian regarding: the historical points, exam findings, and any diagnostic results supporting the discharge/admit diagnosis, the presence of at least one elevated blood pressure reading (>120/80) during this emergency department visit, the need for outpatient follow up. Response to treatment: the patient's symptoms have markedly improved after treatment. 01/25 23:00 Order name: Basic Metabolic Panel vt2 01/25 23:00 Order name: CBC with Diff ma2 01/25 23:00 Order name: Hepatic Function; Complete Time: 23:57 ma2 01/25 23:00 Order name: Lipase; Complete Time: 23:57 ma2 01/25 23:01 Order name: Basic Metabolic Panel; Complete Time: 23:57 EDMS 01/26 00:04 Order name: CBC Smear Scan EDMS 01/25 23:00 Order name: IV Saline Lock; Complete Time: 23:21 ma2 01/25 23:00 Order name: Labs collected and sent; Complete Time: 23:21 ma2 01/25 23:00 Order name: Urine Dipstick-Ancillary (obtain specimen); Complete Time: 00:14 vt2 01/26 00:12 Order name: Urine Dipstick-Ancillary EDMS Administered Medications: 23:10 Drug: NS 0.9% 1000 ml Route: IV; Rate: 1 bolus; Site: left antecubital; 2 01/26 00:18 Follow up: IV Status: Completed infusion; IV Intake: 1000ml [facility] 01/25 23:10 Drug: Zofran (Ondansetron) 4 mg Route: IVP; Site: left antecubital; 2 01/26 00:18 Follow up: Response: Nausea is decreased [facility] 01/25 23:20 Drug: Pepcid (famotidine) 20 mg Route: IVP; Site: left antecubital; 2 01/26 00:17 Follow up: Response: Nausea is decreased 2 Disposition Summary: 01/25/21 23:58 Discharge Ordered Location: Home vt2 Condition: Stable vt2 Diagnosis - Vomiting without nausea - COVID - 19 ma2 Followup: ma2 - With: Private Physician - When: Tomorrow - Reason: Continuance of care Discharge Instructions: - Discharge Summary Sheet vt2 - Nausea and Vomiting, Adult ma2 - COVID-19 ma2 - COVID-19 Frequently Asked Questions ma2 Forms: - Medication Reconciliation Form ma2 - Thank You Letter ma2 - Antibiotic Education ma2 - Prescription Opioid Use ma2 Prescriptions: - Pepcid 20 mg Oral Tablet - take 1 tablet by ORAL route every 12 hours for 10 days; 20 tablet; Refills: 0, ma2 Product Selection Permitted - Zofran 4 mg Oral Tablet - take 1 tablet by ORAL route every 12 hours As needed; 20 tablet; Refills: 0, ma2 Product Selection Permitted Signatures: Dispatcher [employer] EDNJ [place] MD MD ma2 Carrie Jimenez RN RN bs2 [place] RN RN cw2
[2021-01-26 00:12] LABS: Urine Blood 1+ (Negative); Urine Glucose Negative (Negative); Urine Protein Trace (Negative); Urine Specific Gravity 1.015 (1.005-1.030)
[2021-01-26 00:41] VITALS: BP 111/69; TEMP 98.7; O2SAT 99
[2021-01-26 02:47] LABS: Blood Morphology Comment NOT SEEN (NOT SEEN); Platelet Estimate ADEQ; White Blood Cell Scan OK (OK)
== END 2021-01-26 00:33 | disposition home or self-care (01) ==
LOC: ER 22:14
DX: U07.1 COVID-19 (principal); Z88.0 Allergy status to penicillin; Z88.5 Allergy status to narcotic agent
CPT/HCPCS: 36415; 80048; 80076; 81003; 83690; 85025; 96361; 96374; 96375; 99284; J2405; J7030

== ENCOUNTER 2022-06-05 11:55 | Emergency (ER) | payer SELFPAY ==
--- OUTSIDE RECORDS SUMMARY | 2022-06-05 11:58 | XMS REPORT | Continuity of Care Document ---
:1975 Author Organization [facility] t Address [address] [place] [address] Care Team Providers Name Role Phone JASON CALVERT Primary Care Physician Unavailable JC CORDERO Attending Clinician Unavailable WINSOME HALEY Attending Clinician Unavailable Payers Payer Name Policy Type Policy Number Effective Date Expiration Date S ource Problems This patient has no known problems. Allergies, Adverse Reactions, Alerts Allergy Allergy Status Severity Reaction(s) Onset Inactive Treating Comm ents Source Name Type Date Date Clinician Penicill Propensi Active Swelling 2020-04 Meth javier ins ty to 05-20 st adverse 00:00: Hospita reaction 00 l s to drug Hydrocod Propensi Active Other (See 2020-04 Hypotensi Methodi one-Acet ty to Comments) 05-[address] aminophe adverse 00:00: Hospita n reaction 00 l s to drug hydrocod DA Active AL 2017-04 [facility] bit 0-03 [place] 00:[facility]: [facility] [address] [place] [address] Penicill DA Active AL 2017-04 [facility] ins 0-03 [place] 00:00: [facility] CEPHALEX Allergy Active 2012-[address] [facility] [facility] Center Cephalex Propensi Active 2012-[address] in ty to 2-21 [facility] adverse 00:00: Medical reaction 00 Center s hydrocod DA Active AL 2012-04 [facility] one bit 1-20 [place] 00:[facility]: [facility] Penicill DA Active AL 2012-04 [facility] ins 1-20 [place] 00:[facility] PENICILL Allergy Active Swelling 2012-04 [facility] HYDROCOD Allergy Active Swelling 2012-04 [facility] AMIN[facility] 00:[facility]: Medical N 00 Center Penicill Drug Active Swelling 2012-[address] [facility] ins Allergy 0-04 [facility] 00:[facility]: Medical 00 Center Hydrocod Drug Active Swelling 2012-[address] [facility] one-Acet Allergy 0-04 [facility] aminophe 00:00: Medical n 00 Center Social History Social Habit Start Date Stop Date Quantity Comments Source History SDIA [facility] Alcohol Std Drinks [facility] History SDIA [facility] Alcohol Binge Medical [facility] History SDIA [facility] Alcohol Frequency Medical Center Alcohol intake 2014-07-25 2014-07-25 [facility] Center (finding) History SDIA 2013-11-11 2013-11-[address] [facility] Alcohol Comment 00:00:00 00:00:00 Medical C enter Sex Assigned At [address] [facility] 00[facility] Center Smoking Status Start Date Stop Date Source Tobacco smoking consumption unknown [facility] Never smoker [facility] Medications Ordered Filled Start Stop Current Ordering Indication Dosage Frequency Signature Comments Components Source Medication Medication Date Date Medication? Clinician (SIG) Name Name benzonatate 2020-04 Yes 100mg [id number] Take 1 Methodi (TESSALON) -[id number] 100 MG 00:00: 3D (100 mg Hospita capsule 00 total) by l mouth 3 (three) times a day as needed for cough for up to 20 doses. ALPRAZolam Yes .25mg Take 0.[address] (XANAX) 4-02 mg by [facility] 0.25 MG 20:30: mouth Medical tablet 45 every Center night as needed. ALPRAZolam 2015-0 Yes .25mg Take [address] (XANAX) 4-02 tablet [facility] 0.25 MG 00:00: (0.25 mg Medica l tablet 00 total) by Center mouth every night as needed for Anxiety. Procedures Procedure Date / Time Performed Performing Clinician Sour e URINE CULTURE 2022-02-06 22:35:00 Amirah Rodriguez [facility] URINALYSIS W/ 2022-02-06 22:35:00 Tiago Alvarado [facility] Plan of Care Planned Activity Planned Date Details Comments Source Future Scheduled 2022-06-05 BREAST CANCER [facility] Test 11:58:01 SCREENING [code = BREAST CANCER SCREENING] Future Scheduled 2022-06-05 INFLUENZA VACCINE Method [facility] Test 11:58:01 [code = INFLUENZA VACCINE] Future Scheduled 2022-06-05 COLONOSCOPY SCREENING [facility] Test 11:58:01 [code = COLONOSCOPY SCREENING] Future Scheduled 2022-06-05 COVID-19 VACCINE (#1) [facility] Test 11:58:01 [code = COVID-19 VACCINE (#1)] Future Scheduled 2022-06-05 Hepatitis C screening [facility] Test 11:58:01 (procedure) [code = 185187270] Future Scheduled 2022-06-05 Screening for [facility] Test 11:58:01 malignant neoplasm of cervix (procedure) [code = 953538811] Future Scheduled [address] [facility] Test 00:00:00 (procedure) [code = [facility] 31755502] Future Scheduled 2022-04-[address] [facility] Test 00:00:00 (12+) [code = [facility] Center DEPRESSION SCREENING (12+)] Future Scheduled 2021-12-21 INFLUENZA VACCINE (#1) [facility] Test 00:00:00 [code = INFLUENZA Medical Ce nter VACCINE (#1)] Future Scheduled 2014-11-[address] [facility] Test 00:00:00 malignant neoplasm of Medica l Center colon (procedure) [code = 513209772] Future Scheduled 2014-11-[address] [facility] [facility] Test 00:00:00 malignant neoplasm of Medica l Center colon (procedure) [code = 303726440] Future Scheduled [address] [facility] Test 00:00:00 malignant neoplasm of Medica l Center cervix (procedure) [code = 890958100] Future Scheduled 1996 DTAP/TDAP/TD VACCINES [facility] Test 00:00:00 (1 - Tdap) [code = Medical C enter DTAP/TDAP/TD VACCINES (1 - Tdap)] Future Scheduled 1995 HEPATITIS C SCREENING [facility] Test 00:00:00 [code = HEPATITIS C Medical Center SCREENING] Future Scheduled [address] [facility] Test 00:00:00 Counseling and Medical Cente r Screening (12+) [code = Tobacco Cessation Counseling and Screening (12+)] Future Scheduled 1975 COVID-19 VACCINE (#1) [facility] Test 00:00:00 [code = COVID-[address] VACCINE (#1)] Future Scheduled [address] Test 00:00:00 (combo) [code = CT Medical C enter Colonography (combo)] Future Scheduled [address] [facility] Test 00:00:00 malignant neoplasm of Medica l Center colon (procedure) [code = 173695468] Future Scheduled [address] [facility] Test 00:00:00 malignant neoplasm of Medica l Center colon (procedure) [code = 194368642] Future Scheduled 1975 Sigmoidoscopy [code = [facility] Test 00:00:00 Sigmoidoscopy] Medical Cente r Encounters Start End Encounter Admission Attending Care Care Encounter Source Date/Time Date/Time Type Type Clinicians Facility Department ID 2022-02-06 2022-02-06 Emergency ER [facility] Emergency [id number] [facility] 20:15:00 23:05:00 6 2022-02-06 2022-02-[address] [facility] [id number] 20:15:00 23:05:[address] [place] [address] 2021-03-20 2021-03-20 Emergency [facility] [id number] [place] [address] 00:00:00 00:00:[address] JC [address] Results Test Description Test Time Test Comments Results Result Comments Source URINE CULTURE 2022-03-01 17:05:03 Test Item Value Reference Range Interpretation Comme nts CULTURE (BEAKER) (test code = KLEBSIELLA PNEUMONIAE SSP A >100,000 col/mL 1095) PNEUMONIAE Klebsiella pneu moniae ssp pneumoniae Amikacin (test code = 1) S Ampicillin + Sulbactam (test S code = 6) Aztreonam (test code = 32) S Cefazolin (test code = 9) S Cefepime (test code = 51) S Cefoxitin (test code = 68) S Ceftazidime (test code = 27) S Ceftriaxone (test code = 52) S Ertapenem (test code = 38) S Gentamicin (test code = 18) S Levofloxacin (test code = 22) S Meropenem (test code = 34) S Nitrofurantoin (test code = 23) R Piperacillin + Tazobactam (test S code = 29) Tobramycin (test code = 25) S Trimethoprim + Sulfamethoxazole S (test code = 47) CULTURE (BEAKER) (test code = A >100,000 col/mL 1095) Gardnerella vag inalis <10,000 col/mL skin floraUrinalysis w/[id number] 15:15:42 Test Item Value Reference Range Interpretation Comments Color, UA (test code = Yellow 5778-6) Clarity, UA (test code Hazy = 5767-9) Specific [place], UA 1.026 1.001-1.035 (test code = 5811-5) pH, UA (test code = 6.0 5.0-8.0 5803-2) Protein, UA (test code Negative Negative = 22000-5) Glucose, UA (test code Negative Negative = 365) Ketones, UA (test code Negative Negative = 2514-8) Bilirubin, UA (test Negative Negative code = 36844-0) Blood, UA (test code = Negative Negative 04501-2) Nitrite, UA (test code Negative Negative = 5802-4) Leukocytes, UA (test Negative Negative code = 5799-2) Urobilinogen, UA (test 0.2 code = 40463-8) Bacteria, UA (test Many code = 42370-9) RBC, UA (test code = <5 See_Comment [Autom ated message] 799-7) The system [employer] generated this result transmitted ref erence range: /HPF. Th e reference range was not used to interpr et this result as normal/abnormal . WBC, UA (test code = 10-20 See_Comment [Autom ated message] 62021-2) The system [employer] generated this result transmitted ref erence range: /HPF. Th e reference range was not used to interpr et this result as normal/abnormal . SQUAMOUS EPITHELIAL 10-20 See_Comment [Automa omar message] (test code = 60883-6) The sy stem which generated this result transmitted ref erence range: /HPF. Th e reference range was not used to interpr et this result as normal/abnormal . Specimen Source (test code = 2795) [facility] [id number] 15:15:42 Test Item Value Reference Range Interpretation Comments COLOR (BEAKER) (test code = 470) Yellow CLARITY (BEAKER) (test code = 469) Hazy SPECIFIC GRAVITY UA (BEAKER) (test 1.026 1.001-1.035 code = 468) PH UA (BEAKER) (test code = 467) 6.0 5.0-8.0 PROTEIN UA (BEAKER) (test code = Negative Negative 464) GLUCOSE UA (BEAKER) (test code = Negative Negative 365) KETONES UA (BEAKER) (test code = Negative Negative 371) BILIRUBIN UA (BEAKER) (test code = Negative Negative 462) BLOOD UA (BEAKER) (test code = Negative Negative 461) NITRITE UA (BEAKER) (test code = Negative Negative 465) LEUKOCYTE ESTERASE UA (BEAKER) Negative Negative (test code = 466) UROBILINOGEN UA (BEAKER) (test 0.2 code = 463) BACTERIA (BEAKER) (test code = Many 517) RBC UA-MANUAL (BEAKER) (test code <5 /HPF = 1659) WBC UA-MANUAL (BEAKER) (test code 10-20 /HPF = 1661) SQUAMOUS EPITHELIAL MANUAL 10-20 /HPF (BEAKER) (test code = 1663) SOURCE(BEAKER) (test code = 2795) URINALYSIS W/ REFLEX URINE [id number] 01:40:00 Test Item Value Reference Range Interpretation Comments COLOR (BEAKER) (test code = 470) Yellow CLARITY (BEAKER) (test code = 469) Clear SPECIFIC GRAVITY UA (BEAKER) (test 1.016 1.001-1.035 code = 468) PH UA (BEAKER) (test code = 467) 6.0 5.0-8.0 PROTEIN UA (BEAKER) (test code = Negative Negative 464) GLUCOSE UA (BEAKER) (test code = Negative Negative 365) KETONES UA (BEAKER) (test code = Negative Negative 371) BILIRUBIN UA (BEAKER) (test code = Negative Negative 462) BLOOD UA (BEAKER) (test code = 461) Large Negative A NITRITE UA (BEAKER) (test code = Negative Negative 465) LEUKOCYTE ESTERASE UA (BEAKER) (test Negative Negative code = 466) UROBILINOGEN UA (BEAKER) (test code < mg/dL 0.2-1.0 = 463) RBC UA (BEAKER) (test code = 519) 270 /HPF WBC UA (BEAKER) (test code = 520) 2 /HPF MUCUS (BEAKER) (test code = 1574) Rare SQUAMOUS EPITHELIAL (BEAKER) (test < /HPF code = 516) SOURCE(BEAKER) (test code = 2795) SCREEN, [id number] 01:32:00 Test Item Value Reference Range Interpretation Comments TEST URINE (BEAKER) (test Negative code = 583) RAD, CHEST, 2 [id number] 01:14:00Reason for exam:->FEVERReason for exam:->COUGHFINAL REPORT EXAMINATION: 2 VIEW CHEST CLINICAL INDICATION: Fever, cough IMPRESSION: Compared with 01/23/2013. No evidence of focal lung consolidation, pulmonary edema or pleural effusion. The heart size is normal. Mediastinal contours are sharp and stable. No evidence of an acute osseous abnormality or pneumothorax. In summary, no radiographic evidence of an acute cardiopulmonaryprocess. Signed: Brielle Mcdonough MDReport Verified Date/Time: 04/11/2017 01:14:46 Reading Location: [address] Reading Room RAPID INFLUENZA A&B [id number] 00:29:00 Test Item Value Reference Range Interpretation Comments RAPID INFLUENZA A AG (BEAKER) (test Positive Negative AA code = 1622) RAPID INFLUENZA B AG (BEAKER) (test Negative Negative code = 1623)
[2022-06-05] MEDS ORDERED: LEVALBUTEROL 1.25 MG/3 ML NEB ONE (13:36)
[2022-06-05] MEDS ORDERED: NA CHLORIDE 0.9% 1,000 ML ONE (13:36)
[2022-06-05 13:38] LABS: Absolute Lymphocytes (CBC) 1.2 K/uL (0.7-4.9); Hematocrit 39.3 % (36.0-45.0); Lymphocytes % 14.7 % (15.3-44.8); MCV 84.3 fL (80-100); MPV 8.6 fL (7.6-11.3); RBC Red Blood Cell Count 4.66 M/uL (3.86-4.86)
--- NOTE | 2022-06-05 13:42 | RAD REPORT ---
EXAM DESCRIPTION: RAD - Chest Single View - 06/05/2022 1:27 pm CLINICAL HISTORY: Cough Chest pain. COMPARISON: No comparisons FINDINGS: Portable technique limits examination quality. The lungs are grossly clear. The heart is normal in size. No displaced fractures. IMPRESSION: No acute intrathoracic process suspected.
[2022-06-05 13:43] LABS: Protime INR 0.98
[2022-06-05 14:14] LABS: ALT/SGPT 32 U/L (13-56); AST/SGOT 14 U/L (15-37); Albumin 3.6 g/dL (3.4-5.0); Alkaline Phosphatase 67 U/L (45-117); BUN Blood Urea Nitrogen 22 mg/dL (7-18); Bicarbonate 24 mmol/L (21-32); Bilirubin Direct 0.1 mg/dL (0-0.2); Bilirubin Total 0.6 mg/dL (0.2-1.0); Glomerular Filtration Rate 61 ml/min (=/>90); Glucose Level 106 mg/dL (74-106); Magnesium 2.1 mg/dL (1.6-2.4); NT PRO-BNP 18 pg/mL (<125); Potassium 4.1 mmol/L (3.5-5.1); Sodium Level 137 mmol/L (136-145)
[2022-06-05 14:15] LABS: Troponin High Sensitivity < 3.0 pg/mL (<58.9)
--- NOTE | 2022-06-05 14:47 | RAD REPORT ---
EXAM DESCRIPTION: CT - Chest For Pe Angio - 06/05/2022 2:26 pm CLINICAL HISTORY: Chest pain. DYSPNEA COMPARISON: No comparisons TECHNIQUE: CT angiogram of the pulmonary arteries was performed with MIP. All CT scans are performed using dose optimization technique as appropriate and may include automated exposure control or mA/KV adjustment according to patient size. FINDINGS: No evidence of pulmonary thromboembolism. No acute aortic finding demonstrated. The lungs are clear. No significant pericardial or pleural fluid. No concerning bony finding. IMPRESSION: No evidence of pulmonary thromboembolism. No acute lung findings.
--- NOTE | 2022-06-05 15:25 | EDPHYS ---
Physician Documentation [facility] Name: Heaven Sun Age: 47 yrs Sex: Female : 1975 Arrival Date: 06/05/2022 Time: 11:56 Bed 12 Private MD: ED Physician Darian Clark HPI: 06/05 12:54 This 47 yrs old Female presents to ER via Wheelchair with complaints of Near rn Syncope, Chest Congestion, fast HR. 12:54 The patient has experienced near-syncope. rn 12:57 Onset: The symptoms/episode began/occurred 2 week(s) ago. Duration: The patient has had rn multiple episodes. Associated injury: The patient did not suffer any apparent associated injury. Associated signs and symptoms: Pertinent positives:. 12:57 The patient has shortness of breath at rest, with light activity. Duration: The rn symptoms are intermittent. The patient's shortness of breath is aggravated by coughing, exertion, light activity, walking, is alleviated by rest. Associated signs and symptoms: Pertinent positives: productive cough, Pertinent negatives: fever, hemoptysis, loss of consciousness. Severity of symptoms: At their worst the symptoms were moderate in the emergency department the symptoms are unchanged. The patient has not experienced similar symptoms in the past. The patient has not recently seen a physician. Pt reports COVID + 2 weeks ago, still coughing, sob, lightheaded, fatigued. Feels very weak. No hx of dvt/PE. No hemoptysis. No trauma. NO vomiting/diarrhea. . 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 - Social history:: Smoking status: unknown. - Family history:: not pertinent. - Hospitalizations: : No recent hospitalization is reported. ROS: 12:57 Constitutional: Negative for fever, and weight loss, Eyes: Negative for injury, pain, rn redness, and discharge, ENT: + congestion Neck: Negative for injury, pain, and swelling, Cardiovascular: Negative for chest pain, palpitations, and edema, Respiratory: + cough and sob Abdomen/GI: Negative for abdominal pain, nausea, vomiting, diarrhea, and constipation, MS/Extremity: Negative for injury and deformity, Skin: Negative for injury, rash, and discoloration, Neuro: Negative for numbness, tingling, and seizure Exam: 12:57 Constitutional: This is a well developed, well nourished patient who is awake, alert, rn sitting in wheelchair Head/Face: Normocephalic, atraumatic. Eyes: Pupils equal round and reactive to light, extra-ocular motions intact. ENT: dry MM, no stridor Cardiovascular: + heart racing, no chest pain Respiratory: No increased work of breathing, no retractions or nasal flaring. Abdomen/GI: soft, non-tender Skin: Warm, dry MS/ Extremity: Pulses equal, no cyanosis. Neuro: Awake and alert, GCS 15 15:39 ECG was reviewed by the Attending Physician. rn Vital Signs: 12:45 BP 124 / 86; Pulse 78; Resp 17; Temp 97.9; Pulse Ox 99% ; jl7 MDM: 12:39 Patient medically screened. rn 15:22 Differential diagnosis: Anemia Anxiety Reaction pneumonia, Pneumothorax Pulmonary rn Embolism. Data reviewed: vital signs, nurses notes, lab test result(s), EKG, radiologic studies, CT scan, plain films, and as a result, I will discharge patient. Counseling: I had a detailed discussion with the patient and/or guardian regarding: the historical points, exam findings, and any diagnostic results supporting the discharge/admit diagnosis, lab results, radiology results, the need for outpatient follow up, to return to the emergency department if symptoms worsen or persist or if there are any questions or concerns that arise at home. Response to treatment: the patient's symptoms have markedly improved after treatment, patient is well hydrated. and as a result, I will discharge patient. Special discussion: I discussed with the patient/guardian in detail that at this point there is no indication for admission to the hospital. It is understood, however, that if the symptoms persist or worsen the patient needs to return immediately for re-evaluation. 06/05 12:53 Order name: BMP rn 06/05 12:53 Order name: Blood Culture Adult (2) rn 06/05 12:53 Order name: CBC with Diff rn 06/05 12:53 Order name: Hepatic Function rn 06/05 12:53 Order name: Magnesium rn 06/05 12:53 Order name: NT PRO-BNP rn 06/05 12:53 Order name: PT-INR rn 06/05 12:53 Order name: Ptt, Activated rn 06/05 12:53 Order name: Troponin HS rn 06/05 13:39 Order name: CBC with Automated Diff; Complete Time: 13:46 EDMS 06/05 13:43 Order name: Protime (+INR); Complete Time: 13:46 EDMS 06/05 13:43 Order name: PTT, Activated Partial Thromb; Complete Time: 13:46 EDMS 14 14:15 Order name: Basic Metabolic Panel; Complete Time: 14:54 EDMS 06/05 14:15 Order name: Liver (Hepatic) Function; Complete Time: 14:54 EDMS 06/05 12:53 Order name: CT Chest For PE Angio rn 06/05 12:53 Order name: XRAY CXR (1 view) rn 06/05 12:53 Order name: EKG; Complete Time: 12:54 rn 06/05 12:53 Order name: Cardiac monitoring; Complete Time: 14:01 rn 06/05 12:53 Order name: EKG - Nurse/Tech; Complete Time: 14:01 rn 06/05 12:53 Order name: IV Saline Lock; Complete Time: 13:37 rn 06/05 12:53 Order name: Labs collected and sent; Complete Time: 14:02 rn 06/05 12:53 Order name: O2 Per Protocol; Complete Time: 13:37 rn 06/05 12:53 Order name: O2 Sat Monitoring; Complete Time: 13:37 rn 06/05 13:42 Order name: RAD; Complete Time: 13:46 EDMS 14 14:15 Order name: Troponin High Sensitivity; Complete Time: 14:54 EDMS 14 14:15 Order name: NT PRO-BNP; Complete Time: 14:54 EDMS 14 14:15 Order name: Magnesium; Complete Time: 14:54 EDMS 14 14:48 Order name: CT; Complete Time: 14:54 EDMS EC:39 Rate is 66 beats/min. Rhythm is regular. QRS [place] is Normal. [place] interval is normal. QRS rn interval is normal. QT interval is normal. No Q waves. T waves are Normal. No ST changes noted. Clinical impression: Normal ECG. Interpreted by me. Reviewed by me. Administered Medications: 13:37 Drug: NS 0.9% 1000 ml Route: IV; Rate: 1000 ml; Site: left antecubital; ap3 13:37 Drug: Xopenex (levalbuterol) 1.25 mg Route: Inhalation; ap3 Disposition Summary: 06/05/22 15:24 Discharge Ordered Location: Home rn Problem: an ongoing problem rn Symptoms: have improved rn Condition: Stable rn Diagnosis - Dehydration rn - Muscle weakness (generalized) rn - SARS-associated coronavirus as the cause of diseases classified elsewhere rn Followup: rn - With: Private Physician - When: As needed - Reason: Recheck today's complaints, Re-evaluation by your physician Discharge Instructions: - Discharge Summary Sheet rn - Dehydration, Adult rn - Weakness rn - COVID-19 rn - Viral Illness, Adult rn Forms: - Medication Reconciliation Form rn - Thank You Letter rn - Antibiotic lab intern - Prescription Opioid Use rn Signatures: Dispatcher [employer] Darian Hebert MD MD rn Leal, Jahala, RN RN jl7 Sherron Day RN RN ap3
--- NOTE | 2022-06-05 15:25 | ER ---
Nurse's Notes [facility] Name: Heaven Sun Age: 47 yrs Sex: Female : 1975 Arrival Date: 06/05/2022 Time: 11:56 Bed 12 Private MD: Diagnosis: Dehydration;Muscle weakness (generalized);SARS-associated coronavirus as the cause of diseases classified elsewhere Presentation: 06/05 12:45 Chief complaint: Patient states: Had covid on 05/18/22; productive cough and "It's jl7 triggering my tachycardia.". Coronavirus screen: cough unrelated to allergies, Client presents with at least one sign or symptom that may indicate coronavirus-19. Ebola Screen: No symptoms or risks identified at this time. Initial Sepsis Screen: Does the patient meet any 2 criteria? No. Patient's initial sepsis screen is negative. Does the patient have a suspected source of infection? No. Patient's initial sepsis screen is negative. Risk Assessment: Do you want to hurt yourself or someone else? Patient reports no desire to harm self or others. Onset of symptoms was May 18, 2022. 12:45 Method Of Arrival: Wheelchair jl7 12:45 Acuity: ABIGAIL 3 jl7 Triage Assessment: 12:46 General: Appears in no apparent distress. uncomfortable, Behavior is calm, cooperative, jl7 appropriate for age. Pain: Denies pain. Neuro: Level of Consciousness is awake, alert, obeys commands, Oriented to person, place, time, situation. Cardiovascular: Patient's skin is warm and dry. Respiratory: Airway is patent Respiratory effort is even, unlabored, Respiratory pattern is regular, symmetrical. 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 - Social history:: Smoking status: unknown. - Family history:: not pertinent. - Hospitalizations: : No recent hospitalization is reported. Screenin:56 [facility] ED Fall Risk Assessment (Adult) History of falling in the last 3 months, ss including since admission No falls in past 3 months (0 pts). Abuse screen: Denies threats or abuse. Denies injuries from another. Nutritional screening: No deficits noted. Tuberculosis screening: Never had TB. Assessment: 13:30 General: Appears in no apparent distress. comfortable, Behavior is calm, cooperative. ss Neuro: Level of Consciousness is awake, alert, obeys commands, Oriented to person, place, time, situation. Cardiovascular: Capillary refill < 3 seconds is brisk in bilateral fingers Patient's skin is warm and dry. Respiratory: Airway is patent Respiratory effort is even, unlabored, Respiratory pattern is regular, symmetrical. GI: Patient currently denies nausea. Derm: Skin is intact, is healthy with good turgor, Skin is dry, Skin is pink, warm \\T\\ dry. normal. Musculoskeletal: Circulation, motion, and sensation intact. Range of motion: intact in all extremities, Swelling absent. 13:56 Reassessment: Patient appears in no apparent distress at this time. Patient and/or ss family updated on plan of care and expected duration. Pain level reassessed. neg completed. Pt given ice water as requested. Call light remains within reach. Vital Signs: 12:45 BP 124 / 86; Pulse 78; Resp 17; Temp 97.9; Pulse Ox 99% ; jl7 ED Course: 11:56 Patient arrived in ED. am2 12:38 Darian Clark MD is Attending Physician. rn 12:46 Triage completed. jl7 12:46 Arm band placed on right wrist. Patient placed in waiting room, Patient notified of jl7 wait time. 13:29 Gita Reaves, SILEK is Primary Nurse. ss 13:56 Patient has correct armband on for positive identification. Bed in low position. Call ss light in reach. Side rails up X 1. 13:56 Inserted saline lock: 20 gauge in left antecubital area, using aseptic technique. ss ,using aseptic technique. Earlier insertion by Sary chemistry technician Blood collected. 15:49 No provider procedures requiring assistance completed. IV discontinued, intact, ss bleeding controlled, No redness/swelling at site. Pressure dressing applied. Administered Medications: 13:37 Drug: NS 0.9% 1000 ml Route: IV; Rate: 1000 ml; Site: left antecubital; ap3 13:37 Drug: Xopenex (levalbuterol) 1.25 mg Route: Inhalation; ap3 Medication: 13:56 VIS not applicable for this client. ss Outcome: 15:24 Discharge ordered by . rn 15:49 Discharged to home ambulatory, with family. ss 15:49 Condition: good 15:49 Discharge instructions given to patient, family, Instructed on discharge instructions, follow up and referral plans. medication usage, Demonstrated understanding of instructions, follow-up care. 15:49 Patient left the ED. ss Signatures: Darian Clark MD MD rn Smirch, Shelby, RN RN Bev Kaur RN RN jl7 Sherron Rose am2 Sherron Day RN RN ap3
[2022-06-05 16:12] VITALS: BP 124/86; TEMP 97.9; O2SAT 99
--- NOTE | 2022-06-06 13:00 | EKG ---
Test Date: 2022-06-05 Test Time: 13:08:08 [place] Feeder: JEREMIAH MEASUREMENT RESULTS: Intervals: Rate: 66 IA: 152 QRSD: 76 QT: 382 QTc: 400 [place]: P: 47 IA: 152 QRS: 56 T: 42 INTERPRETIVE STATEMENTS: Normal sinus rhythm Normal ECG No previous ECG available for comparison Electronically Signed On 06-06-22 12:58:38 DISSOLVER OPERATOR by Matthew Matias
== END 2022-06-05 15:49 | disposition home or self-care (01) ==
LOC: ER 11:55
DX: E86.0 Dehydration (principal); U07.1 COVID-19; M62.81 Muscle weakness (generalized); Z88.0 Allergy status to penicillin
CPT/HCPCS: 36415; 71045; 71275; 80048; 80076; 83735; 83880; 84484; 85025; 85610; 85730; 87040; 93005; J7030; J7614; Q9967

== ENCOUNTER 2022-06-23 01:07 | Emergency (ER) | payer SELFPAY ==
--- OUTSIDE RECORDS SUMMARY | 2022-06-23 01:11 | XMS REPORT | Continuity of Care Document ---
:1975 Author Organization [facility] t Address [address] [facility] [address] [place] [address] Care Team Providers Name Role Phone JASON CALVERT Primary Care Physician Unavailable Marta Louis Attending Clinician MARTA BARRAGAN Attending Clinician Unavailable JC CORDERO Attending Clinician Unavailable WINSOME [...] l s to drug hydrocod DA Active 2017-04 [facility] Penicill DA Active [place] 2017-04 [facility] ins [facility] Cephalex Propensi Active 2012-[address] [facility] [facility] 06-12 [facility] adverse 00:00: Medical reaction 00 Center s CEPHALEX Allergy Active 2012-04 [facility] IN 06-12 00:00: 00 hydrocod DA Active [place] 2012-04 [facility] bit 1-20 [facility] 00:[facility]: [facility] 00 [facility] Penicill DA Active [place] 2012-04 [facility] ins 1-20 [facility] Penicill Drug Active Swelling 2012-[address] [facility] Allergy 0-04 [facility] 00:[facility]: [facility] 00 Center Hydrocod Drug Active Swelling 2012-[address] [facility] one-Acet Allergy 0-04 [facility] aminophe 00:00: Medical n 00 Center PENICILL Allergy Active Swelling 2012-04 [facility] INS 0-04 00:00: 00 HYDROCOD Allergy Active Swelling 2012-04 [facility] ONE-ACET 0-04 AMINOPHE 00:00: N 00 Social History Social Habit Start Date Stop Date Quantity Comments Source History SDOH [facility] Alcohol Frequency [facility] History SDOH [facility] Alcohol Std Medical Cente r Drinks History SDOH [facility] Alcohol Binge Medical Alisha ter History SDOH 2022-06-17 2022-06-[address] [facility] [facility] Alcohol Comment 00:00:00 00:00:00 Medical C enter Alcohol intake 2022-06-17 2022-06-17 [facility]finding[facility] Tobacco use and 2013-11-11 2013-11-[address] [facility] exposure 00:00:00 00:00:00 Medical Center Sex Assigned At [birth year] [facility] 00:00:00 00:[facility]:00 Hospital Smoking Status Start Date Stop Date Source Tobacco smoking consumption unknown [facility] Never smoker [facility] Medications Ordered Filled Start Stop Current Ordering Indication Dosage Frequency Signature Comments Components Source Medication Medication Date Date Medication? Clinician (SIG) Name Name ALPRAZolam Yes .25mg Take 0.[address] (XANAX) 2-26 mg by [facility] 0.25 MG 21:35: mouth Medical tablet 12 every Center night as needed. benzonatate 2020-04 Yes 100mg Q.[id number] Take 1 [facility] (TESSALON) 1-[id number] 100 MG 00:00: 3D (100 mg Hospita capsule 00 total) by l mouth 3 (three) times a day as needed for cough for up to 20 doses. benzonatate 2020-04 Yes 100mg Q.[id number] Take 1 [facility] (TESSALON) 1-[id number] 100 MG 00:00: 3D (100 [...] mouth every night as needed for Anxiety. ALPRAZolam Yes .25mg Take [address] (XANAX) 4-02 tablet [facility] 0.25 MG 00:00: (0.25 mg Medica l tablet 00 total) by Center mouth every night as needed for Anxiety. Vital Signs Vital Name Observation Time Observation Value Comments Source Systolic blood 2022-06-17 23:21:00 117 mm[Hg] [facility] Diastolic blood 2022-06-17 23:21:00 66 mm[Hg] [facility] S t [facility] Heart rate 2022-06-17 23:21:00 84 /min [facility] Body temperature 2022-06-17 23:21:00 37 [place] [facility] Respiratory rate 2022-06-17 23:21:00 16 /min [facility] Oxygen saturation in 2022-06-17 23:21:00 99 /min [facility] Arterial blood by Medical Ce nter Pulse oximetry Procedures Procedure Date / Time Performed Performing Clinician Sourc e TN I&D BARTHOLIN GLAND 2022-06-17 23:50:40 Marta Barragan [facility] URINE CULTURE 2022-02-06 22:35:00 Amirah Rodriguez [facility] URINALYSIS W/ 2022-02-06 22:35:00 Tiago Alvarado [facility] Plan of Care Planned Activity Planned Date Details Comments Source Future Scheduled 2023-06-17 Tobacco Cessation [facility] Test 00:00:00 Counseling [facility] Medical Cente r Screening (12+) [code = Tobacco Cessation Counseling and Screening (12+)] Future Scheduled 2022-06-23 [facility]FLUENZA VACCINE [facility] Test 01:10:15 [code = INFLUENZA VACCINE] Future Scheduled 2022-06-23 COLONOSCOPY SCREENING [facility] Test 01:10:15 [code = COLONOSCOPY SCREENING] Future Scheduled 2022-06-23 COVID-19 VACCINE (#1) [facility] Test 01:10:15 [code = COVID-19 VACCINE (#1)] Future Scheduled 2022-06-23 Hepatitis C screening [facility] Test 01:10:15 (procedure) [code = 250306316] Future Scheduled 2022-06-23 Screening for [facility] Test 01:10:15 malignant neoplasm of cervix (procedure) [code = 975493702] Future Scheduled 2022-06-23 BREAST CANCER [facility] Test 01:10:15 SCREENING [code = BREAST CANCER SCREENING] Future Scheduled 2022-06-05 COVID-19 VACCINE (#1) [facility] Test 11:58:01 [code = COVID-19 VACCINE (#1)] Future Scheduled 2022-06-05 Hepatitis C screening [facility] Test 11:58:01 (procedure) [code = 055715339] Future Scheduled 2022-06-05 Screening for [facility] Test 11:58:01 malignant neoplasm of cervix (procedure) [code = 657147296] Future Scheduled 2022-06-05 BREAST CANCER [facility] Test 11:58:01 SCREENING [code = BREAST CANCER SCREENING] Future Scheduled 2022-06-05 INFLUENZA VACCINE [facility] Test 11:58:01 [code = INFLUENZA VACCINE] Future Scheduled 2022-06-05 COLONOSCOPY SCREENING [facility] Test 11:58:01 [code = COLONOSCOPY SCREENING] Future Scheduled 2022 Lipid panel [facility] Test 00:00:00 (procedure) [code = [facility] 08704938] Future Scheduled [address] [facility] Test 00:00:00 (procedure) [code = [facility] 06985002] Future Scheduled 2022-04-[address] [facility] Test 00:00:00 (12+) [code = [facility] DEPRESSION SCREENING (12+)] Future Scheduled 2022-04-[address] [facility] Test 00:00:00 (12+) [code = [facility] DEPRESSION SCREENING (12+)] Future Scheduled 2021-12-21 INFLUENZA VACCINE (#1) [facility] Test 00:00:00 [code = INFLUENZA Medical Ce nter VACCINE (#1)] Future Scheduled 2021-12-21 INFLUENZA VACCINE (#1) [facility] Test 00:00:00 [code = INFLUENZA Medical Ce nter VACCINE (#1)] Future Scheduled 2014-11-[address] [facility] Test 00:00:00 malignant neoplasm of Medica l Center colon (procedure) [code = 573061251] Future Scheduled 2014-11-[address] [facility] [facility] Test 00:00:00 malignant neoplasm of Medica l Center colon (procedure) [code = 902797546] Future Scheduled 2014-11-[address] [facility] [facility] Test 00:00:00 malignant neoplasm of Medica l Center colon (procedure) [code = 839895209] Future Scheduled 2014-11-[address] [facility] Test 00:00:00 malignant neoplasm of Medica l Center colon (procedure) [code = 317699982] Future Scheduled [address] [facility] Test 00:00:00 malignant neoplasm of Medica l Center cervix (procedure) [code = 170385109] Future Scheduled [address] [facility] Test 00:00:00 malignant neoplasm of Medica l Center cervix (procedure) [code = 200869377] Future Scheduled 1996 DTAP/TDAP/TD VACCINES [facility] Test 00:00:00 (1 - Tdap) [code = Medical C enter DTAP/TDAP/TD VACCINES (1 - Tdap)] Future Scheduled 1996 DTAP/TDAP/TD VACCINES [facility] Test 00:00:00 (1 - Tdap) [code = Medical C enter DTAP/TDAP/TD VACCINES (1 - Tdap)] Future Scheduled 1995 HEPATITIS C [facility]CRE[facility]ING [facility] Test 00:00:00 [code = HEPATITIS C Medical Center SCREENING] Future Scheduled 1995 HEPATITIS C SCREENING CH [...] Alisha ter VACCINE (#1)] Future Scheduled 1977 COVID-19 VACCINE (#1[facility] Test 00:00:00 [code = COVID-[address] VACCINE (#1)] Future Scheduled [address] [facility] Test 00:00:00 (combo) [code = CT Medical C enter Colonography (combo)] Future Scheduled [address] [facility] [facility] Test 00:00:00 malignant neoplasm of Medica l Center colon (procedure) [code = 404842713] Future Scheduled [address] [facility] [facility] Test 00:00:00 malignant neoplasm of Medica l Center colon (procedure) [code = 775991753] Future Scheduled 1975 Sigmoidoscopy [code = [facility] 00:[facility] Sigmoidoscopy] Medical Cente r Future Scheduled [address] [facility] Test 00:00:00 (combo) [code = CT Medical C enter Colonography (combo)] Future Scheduled [address] [facility] [facility] Test 00:00:00 malignant neoplasm of Medica l Center colon (procedure) [code = 005326087] Future Scheduled [address] [facility] [facility] Test 00:00:00 malignant neoplasm of Medica l Center colon (procedure) [code = 350493453] Future Scheduled 1975 Sigmoidoscopy [facility]code = [facility] Test 00:00:00 Sigmoidoscopy] Medical Cente r Encounters Start End Encounter Admission Attending Care Care Encounter Source Date/Time Date/Time Type Type Clinicians Facility Department ID 2022-06-17 2022-06-17 Emergency Marta Barragan [facility] [id number] 21:42:00 23:25:00 [facility] 2022-06-17 2022-06-17 Emergency ER MARTA BARRAGAN [facility] [address] Emergency 20 [id number] [facility] [address] [address] 21:42:00 23:25:00 2022-02-06 2022-02-06 Emergency [facility] [id number] [facility] [facility] 20:15:00 23:05:[address] [place] [address] 2022-02-06 2022-02-06 Emergency ER [facility] [id number] 20:15:00 23:05:[address] [place] [address] 2022-02-06 2022-02-06 Emergency ER [facility] Emergency [id number] [facility] 20:15:00 23:05:00 6 2021-03-20 2021-03-20 Emergency [facility] [id number] [address] [place] [address] 00:00:00 00:00:[address] J[facility] [address] [...] Gardnerella vag inalis <10,000 col/mL skin floraUrinalysis [id number] 15:15:42 Test Item Value Reference Range Interpretation Comments Color, UA (test code = Yellow 5778-6) Clarity, UA (test code Hazy = 5767-9) Specific Evans, UA 1.026 1.001-1.035 (test code = 5811-5) pH, UA (test code = 6.0 5.0-8.0 5803-2) Protein, UA (test code Negative Negative = 81387-4) Glucose, UA (test code Negative Negative = 365) Ketones, UA (test code Negative Negative = 2514-8) Bilirubin, UA (test Negative Negative code = 80492-7) Blood, UA (test code = Negative Negative 40924-4) Nitrite, UA (test code Negative Negative = 5802-4) Leukocytes, UA (test Negative Negative code = 5799-2) Urobilinogen, UA (test 0.2 code = 91324-9) Bacteria, UA (test Many code = 30027-6) RBC, UA (test code = <5 See_Comment [Autom ated message] 799-7) The system [employer] generated this result transmitted ref erence range: /HPF. Th e reference range was not used to interpr et this result as normal/abnormal . WBC, UA (test code = 10-20 See_Comment [Autom ated message] 54659-7) The system [employer] generated this result transmitted ref erence range: /HPF. Th e reference range was not used to interpr et this result as normal/abnormal . SQUAMOUS EPITHELIAL 10-20 See_Comment [Automa omar message] (test code = 19406-3) The sy stem which generated this result transmitted ref erence range: /HPF. Th e reference range was not used to interpr et this result as normal/abnormal . Specimen Source (test code = 2795) [facility] w/[id number] 15:15:42 Test Item Value Reference Range Interpretation Comments Color, UA (test code = Yellow 5778-6) Clarity, UA (test code Hazy = 5767-9) Specific Evans, UA 1.026 1.001-1.035 (test code = 5811-5) pH, UA (test code = 6.0 5.0-8.0 5803-2) Protein, UA (test code Negative Negative = 66997-8) Glucose, UA (test code Negative Negative = 365) Ketones, UA (test code Negative Negative = 2514-8) Bilirubin, UA (test Negative Negative code = 33283-2) Blood, UA (test code = Negative Negative 03673-5) Nitrite, UA (test code Negative Negative = 5802-4) Leukocytes, UA (test Negative Negative code = 5799-2) Urobilinogen, UA (test 0.2 code = 82275-8) Bacteria, UA (test Many code = 68626-3) RBC, UA (test code = <5 See_Comment [Autom ated message] 799-7) The system [employer] generated this result transmitted ref erence range: /HPF. Th e reference range was not used to interpr et this result as normal/abnormal . WBC, UA (test code = 10-20 See_Comment [Autom ated message] 86152-2) The system [employer] generated this result transmitted ref erence range: /HPF. Th e reference range was not used to interpr et this result as normal/abnormal . SQUAMOUS EPITHELIAL 10-20 See_Comment [Automa omar message] (test code = 21071-8) The sy stem which generated this result transmitted ref erence range: /HPF. Th e reference range was not used to interpr et this result as normal/abnormal . Specimen Source (test code = 2795) [facility]/ [id number] 15:15:42 Test Item Value Reference Range Interpretation [...] code = 2795) URINALYSIS W/ REFLEX URINE [id number] 01:40:00 Test Item Value Reference Range Interpretation [...] 516) SOURCE(BEAKER) (test code = 2795) SCREEN, [id number] 01:32:00 Test Item Value Reference Range Interpretation Comments TEST URINE (BEAKER) (test Negative code = 583) RAD, CHEST, 2 [id number] 01:14:00Reason for exam:->FEVERReason for exam:->COUGHFINAL REPORT EXAMINATION: [...] MDReport Verified Date/Time: 04/11/2017 01:14:46 Reading Location: [address] Reading Room RAPID INFLUENZA A&B [id number] 00:29:00 Test Item Value Reference Range Interpretation Comments RAPID INFLUENZA A AG (BEAKER) (test Positive Negative AA code = 1622) RAPID INFLUENZA B AG (BEAKER) (test Negative Negative code = 1623)
[2022-06-23] MEDS ORDERED: ASPIRIN 81 MG CHEWABLE TABLET ONE (01:23)
[2022-06-23] MEDS ORDERED: ONDANSETRON 4 MG/2 ML VIAL ONE (01:24)
[2022-06-23] MEDS ORDERED: MORPHINE 4 MG/ML SYR ONE (01:24)
[2022-06-23 01:35] LABS: Absolute Lymphocytes (CBC) 2.2 K/uL (0.7-4.9); Hematocrit 35.8 % (36.0-45.0); Lymphocytes % 27.7 % (15.3-44.8); MCV 83.6 fL (80-100); MPV 8.6 fL (7.6-11.3); RBC Red Blood Cell Count 4.28 M/uL (3.86-4.86)
[2022-06-23 01:38] LABS: Protime INR 1.08
[2022-06-23 01:55] LABS: ALT/SGPT 35 U/L (13-56); AST/SGOT 16 U/L (15-37); Albumin 3.3 g/dL (3.4-5.0); Alkaline Phosphatase 66 U/L (45-117); BUN Blood Urea Nitrogen 13 mg/dL (7-18); Bicarbonate 25 mmol/L (21-32); Bilirubin Direct 0.1 mg/dL (0-0.2); Bilirubin Total 0.5 mg/dL (0.2-1.0); Glomerular Filtration Rate 90 ml/min (=/>90); Glucose Level 117 mg/dL (74-106); Lipase 35 U/L (13-75); NT PRO-BNP 57 pg/mL (<125); Potassium 3.4 mmol/L (3.5-5.1); Protein, Total 7.9 g/dL (6.4-8.2); Sodium Level 137 mmol/L (136-145)
[2022-06-23 02:02] LABS: Troponin High Sensitivity < 3.0 pg/mL (<58.9)
[2022-06-23] MEDS ORDERED: LORAZEPAM 1 MG TABLET ONE (02:08)
[2022-06-23] MEDS ORDERED: LIDOCAINE VISCOUS 2% SOLN 15 ML UDC ONE ×2 (02:24→02:27)
[2022-06-23] MEDS ORDERED: MAGNES/ALUMIN/SIMET 30ML UCUP ONE ×2 (02:24→02:27)
--- NOTE | 2022-06-23 05:17 | ER ---
Nurse's Notes [facility] Name: Heaven Snu Age: 47 yrs Sex: Female : 1975 Arrival Date: 06/23/2022 Time: 01:10 Bed 5 Private MD: Diagnosis: Acute pharyngitis, unspecified;Gastro-esophageal reflux disease without esophagitis;Anxiety disorder, unspecified-Acute anxiety attack, tachycardia , noncardiac chest pain, acid reflux, sore throat, pharyngitis and acute tonsillitis Presentation: 06/23 01:29 Chief complaint: Patient states: "I getting a sharp pain in my chest. It first felt vc1 like an air bubble on my side that moved to my chest now it's radiating to my back.". Coronavirus screen: Vaccine status: Patient reports being unvaccinated. headache, Client presents with at least one sign or symptom that may indicate coronavirus-19. Standard/surgical mask placed on the client. Provider contacted for isolation considerations. Ebola Screen: Patient negative for fever greater than or equal to 101.5 degrees Fahrenheit, and additional compatible Ebola Virus Disease symptoms Patient denies exposure to infectious person. Patient denies travel to an Ebola-affected area in the 21 days before illness onset. No symptoms or risks identified at this time. Initial Sepsis Screen: Does the patient meet any 2 criteria? No. Patient's initial sepsis screen is negative. Does the patient have a suspected source of infection? No. Patient's initial sepsis screen is negative. Risk Assessment: Do you want to hurt yourself or someone else? Patient reports no desire to harm self or others. Onset of symptoms was June 22, 2022 at 17:00. 01:29 Method Of Arrival: Ambulatory vc1 01:29 Acuity: ABIGAIL 3 vc1 Triage Assessment: 01:36 General: Appears in no apparent distress. uncomfortable, Behavior is calm, cooperative, vc1 appropriate for age. Pain: Complains of pain in chest Pain radiates to back Pain currently is 7 out of 10 on a pain scale. EENT: No deficits noted. No signs and/or symptoms were reported regarding the EENT system. Neuro: Level of Consciousness is awake, alert, obeys commands, Oriented to person, place, time, situation, Appropriate for age. Cardiovascular: Capillary refill < 3 seconds Patient's skin is warm and dry. Chest pain is described as severe. Respiratory: Airway is patent Respiratory effort is even, unlabored, Respiratory pattern is regular, symmetrical. GI: No deficits noted. No signs and/or symptoms were reported involving the gastrointestinal system. : No deficits noted. No signs and/or symptoms were reported regarding the genitourinary system. Derm: No deficits noted. No signs and/or symptoms reported regarding the dermatologic system. Musculoskeletal: No deficits noted. No signs and/or symptoms reported regarding the musculoskeletal system. [employer] MIN[employer]: 01:38 LMP 05/19/2022 vc1 Historical: - Allergies: 01:36 PENICILLINS; vc1 01:36 Vicodin; vc1 - Home Meds: 01:36 None [Active]; vc1 - PMHx: 01:36 None; vc1 - PSHx: 01:36 cervical fusion; Cholecystectomy; eye; vc1 - Immunization history:: Client reports having NOT received the Covid vaccine. - Social history:: Smoking status: Patient denies any tobacco usage or history of. - Family history:: not pertinent. - Hospitalizations: : No recent hospitalization is reported. Screenin:38 Abuse screen: Denies threats or abuse. Nutritional screening: No deficits noted. vc1 Tuberculosis screening: No symptoms or risk factors identified. 01:47 [facility] ED Fall Risk Assessment (Adult) History of falling in the last 3 months, lg3 including since admission No falls in past 3 months (0 pts). Assessment: 01:38 Pain: Pain began gradually. vc1 01:47 General: Appears in no apparent distress. comfortable, Behavior is calm, cooperative. lg3 Pain: Complains of pain in chest Pain radiates to back. Neuro: No deficits noted. Vizcaino Agitation-Sedation Scale (RASS): +1 Restless Level of Consciousness is awake, alert, obeys commands, Oriented to person, place, time, situation. Cardiovascular: No deficits noted. Reports chest pain, Capillary refill < 3 seconds Clubbing of nail beds is absent JVD is absent Patient's skin is warm and dry. Respiratory: No deficits noted. Reports cough that is Airway is patent Respiratory effort is even, unlabored, Respiratory pattern is regular, symmetrical, Breath sounds are clear bilaterally. GI: No deficits noted. Abdomen is round non-distended, Bowel sounds present X 4 quads. Abd is soft and non tender X 4 quads. : No deficits noted. No signs and/or symptoms were reported regarding the genitourinary system. EENT: No deficits noted. No signs and/or symptoms were reported regarding the EENT system. Derm: No deficits noted. No signs and/or symptoms reported regarding the dermatologic system. Skin is intact, is healthy with good turgor, Skin is dry, Skin is normal, Skin temperature is warm. Musculoskeletal: No deficits noted. No signs and/or symptoms reported regarding the musculoskeletal system. Circulation, motion, and sensation intact. Range of motion: intact in all extremities. 04:27 Reassessment: Patient appears in no apparent distress at this time. Patient and/or lg3 family updated on plan of care and expected duration. Pain level reassessed. Patient is alert, oriented x 3, equal unlabored respirations, skin warm/dry/pink. Patient states feeling better. Patient states symptoms have improved. 05:21 Reassessment: Patient appears in no apparent distress at this time. Patient and/or lg3 family updated on plan of care and expected duration. Pain level reassessed. Patient is alert, oriented x 3, equal unlabored respirations, skin warm/dry/pink. Patient denies pain at this time. Patient states feeling better. Patient states symptoms have improved. Vital Signs: 01:29 BP 121 / 78; Pulse 88; Resp 10; Temp 98.0(O); Pulse Ox 100% on R/A; Weight 73.94 kg; vc1 Height 5 ft. 2 in. (157.48 cm); Pain 7/10; 01:47 BP 123 / 80; Pulse 93; Resp 16; Pulse Ox 100% on R/A; lg3 03:00 BP 110 / 75; Pulse 74; Resp 18 S; Pulse Ox 100% on R/A; as6 04:07 BP 102 / 68; Pulse 86; Resp 18 S; Pulse Ox 100% on R/A; as6 05:18 BP 101 / 65; Pulse 82; Resp 18 S; Pulse Ox 99% on R/A; as6 01:29 Body Mass Index 29.81 (73.94 kg, 157.48 cm) vc1 ED Course: 01:10 Patient arrived in ED. jj6 01:11 Jack Florez MD is Attending Physician. sp4 01:16 Eric Ma, RN is Primary Nurse. as6 01:28 Inserted saline lock: 20 gauge in right antecubital area, using aseptic technique. as6 Blood collected. 01:29 Lipase Sent. as6 :29 Basic Metabolic Panel Sent. as6 :29 CBC with Diff Sent. as6 01:29 LFT's Sent. as6 01:29 NT PRO-BNP Sent. as6 :29 PT-INR Sent. as6 :29 Troponin HS Sent. as6 01:36 Triage completed. vc1 01:38 Arm band placed on right wrist. vc1 01:38 Patient has correct armband on for positive identification. Placed in gown. Bed in low vc1 position. Call light in reach. Client placed on continuous cardiac and pulse oximetry monitoring. NIBP monitoring applied. 01:39 Patient maintains SpO2 saturation greater than 95% on room air. vc1 01:47 D-Dimer Sent. lg3 04:26 Troponin HS: collect at 04:30 AM Sent. lg3 05:18 No provider procedures requiring assistance completed. as6 05:22 IV discontinued, intact, bleeding controlled, No redness/swelling at site. Pressure lg3 dressing applied. Administered Medications: 01:28 Drug: Zofran (Ondansetron) 4 mg Route: IVP; Site: right antecubital; as6 01:47 Follow up: Response: No adverse reaction lg3 01:29 Drug: Aspirin Chewable Tablet 324 mg Route: PO; as6 01:47 Follow up: Response: No adverse reaction lg3 01:29 Drug: morphine 4 mg Route: IVP; Infused Over: 4 mins; Site: right antecubital; as6 01:47 Follow up: Response: No adverse reaction lg3 02:05 Drug: Ativan (LORazepam) 1 mg Route: PO; lg3 04:27 Follow up: Response: No adverse reaction; Marked relief of symptoms; Anxiety decreased lg3 02:28 Drug: GI Cocktail without - (Maalox Suspension 30 ml, Lidocaine Liquid 2 % 15 vc1 ml) Route: PO; 04:26 Follow up: Response: No adverse reaction; Marked relief of symptoms lg3 Medication: 01:38 VIS not applicable for this client. vc1 Outcome: 05:16 Discharge ordered by . sp4 05:18 Discharged to home ambulatory, with family. as6 05:18 Condition: stable 05:22 Discharge instructions given to patient, Instructed on discharge instructions, follow lg3 up and referral plans. medication usage, Demonstrated understanding of instructions, follow-up care, medications, Prescriptions given X 2. 05:23 Patient left the ED. lg3 Signatures: Barbara Schroeder RN RN lg3 Iman Schaeffer jj6 Eric Ma RN RN as6 Danita Lemons RN RN vc1 Jack Florez MD MD sp4
--- NOTE | 2022-06-23 05:17 | EDPHYS ---
Physician Documentation [facility] Name: Heaven Sun Age: 47 yrs Sex: Female : 1975 Arrival Date: 06/23/2022 Time: 01:10 Bed 5 Private MD: ED Physician Jack Florez HPI: 06/23 01:11 This 47 yrs old Female presents to ER via Unassigned with complaints of Chest sp4 Pain. 02:05 The patient or guardian reports chest pain that is located primarily in the substernal sp4 area, anterior chest wall, bilaterally. Onset: acutely, suddenly. Modifying factors: the symptoms are aggravated by Anxiety is worsening chest pain. Severity of pain: At its worst the pain was moderate today, yesterday, in the emergency department the pain is unchanged. 47-year-old female with no significant past medical history presents with acute onset of midsternal chest pain without physical exertion starting at 5 PM yesterday. Patient states she has a history of mild coronavirus illness on 05/18/2022. Patient reports history of cervical fusion via anterior approach and history of remote cholecystectomy. Patient reports history of anxiety starting today causing patient to have worsening chest pain. . 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 - Social history:: Smoking status: Patient denies any tobacco usage or history of. - Family history:: not pertinent. - Hospitalizations: : No recent hospitalization is reported. ROS: 02:05 Constitutional: Negative for fever, chills, and weight loss, Eyes: Negative for injury, sp4 pain, redness, and discharge, ENT: Negative for injury, pain, and discharge, Neck: Negative for injury, pain, and swelling, Cardiovascular: Negative for edema, reported chest pain, racing heart, fast heart rate. Respiratory: Negative for shortness of breath, cough, wheezing, and pleuritic chest pain, Abdomen/GI: Negative for abdominal pain, nausea, vomiting, diarrhea, and constipation, Back: Negative for injury and pain, : Negative for injury, bleeding, discharge, and swelling, MS/Extremity: Negative for injury and deformity, Skin: Negative for injury, rash, and discoloration, Neuro: Negative for headache, weakness, numbness, tingling, and seizure, Psych: Negative for depression, suicide ideation, homicidal ideation, and hallucinations, positive for acute anxiety Allergy/Immunology: Negative for hives, rash, and allergies, Endocrine: Negative for neck swelling, polydipsia, polyuria, polyphagia, and marked weight changes, Hematologic/Lymphatic: Negative for swollen nodes, abnormal bleeding, and unusual bruising. Exam: 02:05 Constitutional: This is a well developed, well nourished patient who is awake, alert, sp4 and in no acute distress. Head/Face: Normocephalic, atraumatic. Eyes: Pupils equal round and reactive to light, extra-ocular motions intact. Lids and lashes normal. Conjunctiva and sclera are non-icteric and not injected. Cornea within normal limits. Periorbital areas with no swelling, redness, or edema. ENT: Nares patent. No nasal discharge, no septal abnormalities noted. Tympanic membranes are normal and external auditory canals are clear. Oropharynx with no redness, swelling, or masses, exudates, or evidence of obstruction, uvula midline. Mucous membranes moist. Neck: Trachea midline, no thyromegaly or masses palpated, and no cervical lymphadenopathy. Supple, full range of motion without nuchal rigidity, or vertebral point tenderness. No Meningismus. Chest/axilla: Normal chest wall appearance and motion. Nontender with no deformity. No lesions are appreciated. Cardiovascular: Regular rate and rhythm with a normal S1 and S2. No gallops, murmurs, or rubs. Normal PMI, no JVD. No pulse deficits. Respiratory: Lungs have equal breath sounds bilaterally, clear to auscultation and percussion. No rales, rhonchi or wheezes noted. No increased work of breathing, no retractions or nasal flaring. Abdomen/GI: Soft, non-tender, with normal bowel sounds. No distension or tympany. No guarding or rebound. No evidence of tenderness throughout. Back: No spinal tenderness. No costovertebral tenderness. Full range of motion. Skin: Warm, dry with normal turgor. Normal color with no rashes, no lesions, and no evidence of cellulitis. MS/ Extremity: Pulses equal, no cyanosis. Neurovascular intact. Full, normal range of motion. Neuro: Awake and alert, GCS 15, oriented to person, place, time, and situation. Cranial nerves II-XII grossly intact. Motor strength 5/5 in all extremities. Sensory grossly intact. Cerebellar exam normal. Normal gait. Psych: Awake, alert, with orientation to person, place and time. Behavior, mood, and affect are within normal limits. 02:05 ECG was reviewed by the Attending Physician. EKG reveals sinus tachycardia at the rate sp4 of 109, EKG is otherwise unremarkable 05:19 Repeat EKG at 4:31 AM, sinus rhythm at the rate of 74, no ST elevation or depression, sp4 no ectopy, normal intervals, overall normal EKG, normal axis Vital Signs: 01:29 BP 121 / 78; Pulse 88; Resp 10; Temp 98.0(O); Pulse Ox 100% on R/A; Weight 73.94 kg; vc1 Height 5 ft. 2 in. (157.48 cm); Pain 7/10; 01:47 BP 123 / 80; Pulse 93; Resp 16; Pulse Ox 100% on R/A; lg3 03:00 BP 110 / 75; Pulse 74; Resp 18 S; Pulse Ox 100% on R/A; as6 04:07 BP 102 / 68; Pulse 86; Resp 18 S; Pulse Ox 100% on R/A; as6 05:18 BP 101 / 65; Pulse 82; Resp 18 S; Pulse Ox 99% on R/A; as6 01:29 Body Mass Index 29.81 (73.94 kg, 157.48 cm) vc1 MDM: 01:17 Patient medically screened. sp4 05:19 Differential diagnosis: acute pericarditis, anxiety, chest wall pain, congestive heart sp4 failure costochondritis, esophagitis, gastritis, gastroesophageal reflux disease (GERD), myocarditis, pericarditis, pleurisy, pulmonary embolus, stable angina. HEART Score: History: Slightly Suspicious (0), ECG: Normal (0), Age: < or = 45 years (0), Risk Factors: No Risk Factors Known (0), Troponin: < or = 1 x Normal Limit (0), Total Score = 0. The patient was given aspirin in the Emergency Department. Consideration of Admission/Observation Patient was admitted/placed on observation. Escalation of care including admission/observation considered. Response to treatment: the patient's symptoms have markedly improved after treatment. ED course: Repeat EKG and repeat troponin or within normal limits, patient has improved after medications in the ER including p.o. Ativan. Patient is stable for discharge home. Patient is also mention sore throat and on exam there was mild pharyngitis. Patient will be given trial of p.o. Zithromax for the next 5 days. Patient was advised to follow-up with primary MD in 7 to 10 days and consider visit with case picker on nonemergent outpatient basis .. 05:19 Data reviewed: vital signs, nurses notes, lab test result(s), cardiac enzymes, CBC, sp4 electrolytes, EKG, radiologic studies, plain films. 06/23 01:16 Order name: Basic Metabolic Panel 4 06/23 01:16 Order name: CBC with Diff 4 06/23 01:16 Order name: LFT's 4 06/23 01:16 Order name: NT PRO-BNP 4 06/23 01:16 Order name: PT-INR 4 06/23 01:16 Order name: Troponin HS 4 06/23 01:16 Order name: XRAY Chest (1 view) 4 06/23 01:16 Order name: EKG; Complete Time: 01: sp4 06/23 01:16 Order name: Cardiac monitoring; Complete Time: sp4 06/23 01:16 Order name: EKG - Nurse/Tech; Complete Time: sp4 06/23 01:16 Order name: IV Saline Lock; Complete Time: sp4 06/23 01:16 Order name: Labs collected and sent; Complete Time: sp4 06/23 01:16 Order name: O2 Per Protocol; Complete Time: sp4 06/23 01:16 Order name: O2 Sat Monitoring; Complete Time: sp4 06/23 01:16 Order name: Lipase sp4 06/23 01:35 Order name: D-Dimer 4 06/23 01:37 Order name: CBC with Automated Diff; Complete Time: 02:05 EDMS 06/23 01:38 Order name: Protime (+INR); Complete Time: 02:05 EDMS 06/23 01:53 Order name: D-Dimer; Complete Time: 02:05 EDMS 06/23 02:02 Order name: Basic Metabolic Panel; Complete Time: 02:05 EDMS 06/23 02:02 Order name: Liver (Hepatic) Function; Complete Time: 02:05 EDMS 06/23 02:02 Order name: Troponin High Sensitivity; Complete Time: 02:05 EDMS 06/23 02:02 Order name: NT PRO-BNP; Complete Time: 02:05 EDMS 06/23 02:02 Order name: Lipase; Complete Time: 02:05 EDMS 06/23 02:25 Order name: Troponin HS: collect at 04:30 AM sp4 06/23 02:25 Order name: EKG - Nurse/Tech: repeat at 04:30 AM; Complete Time: 04:26 sp4 06/23 04:54 Order name: Troponin High Sensitivity; Complete Time: 05:11 EDMS EC:05 Rate is 109 beats/min. Rhythm is regular. QRS [place] is Normal. [place] interval is normal. sp4 QRS interval is normal. QT interval is normal. No ST changes noted. Clinical impression: No evidence of ischemia. Interpreted by me. Administered Medications: 01:28 Drug: Zofran (Ondansetron) 4 mg Route: IVP; Site: right antecubital; as6 01:47 Follow up: Response: No adverse reaction lg3 01:29 Drug: Aspirin Chewable Tablet 324 mg Route: PO; as6 01:47 Follow up: Response: No adverse reaction lg3 01:29 Drug: morphine 4 mg Route: IVP; Infused Over: 4 mins; Site: right antecubital; as6 01:47 Follow up: Response: No adverse reaction lg3 02:05 Drug: Ativan (LORazepam) 1 mg Route: PO; lg3 04:27 Follow up: Response: No adverse reaction; Marked relief of symptoms; Anxiety decreased lg3 02:28 Drug: GI Cocktail without - (Maalox Suspension 30 ml, Lidocaine Liquid 2 % 15 vc1 ml) Route: PO; 04:26 Follow up: Response: No adverse reaction; Marked relief of symptoms lg3 Disposition Summary: 06/23/22 05:16 Discharge Ordered Location: Home sp4 Problem: new sp4 Symptoms: have improved sp4 Condition: Stable sp4 Diagnosis - Acute pharyngitis, unspecified sp4 - Gastro-esophageal reflux disease without esophagitis sp4 - Anxiety disorder, unspecified - Acute anxiety attack, tachycardia , noncardiac sp4 chest pain, acid reflux, sore throat, pharyngitis and acute tonsillitis Followup: sp4 - With: Private Physician - When: 7 - 10 days - Reason: Discharge Instructions: - Discharge Summary Sheet sp4 - Panic Attack sp4 - Pharyngitis sp4 Forms: - Medication Reconciliation Form sp4 - Thank You Letter sp4 - Antibiotic Education sp4 - Prescription Opioid Use sp4 Prescriptions: - lorazepam 1 mg Oral tablet - take 1 tablet by ORAL route 2 times per day as needed for anxiety; 20 tablet; sp4 Refills: 0, Product Selection Permitted - Zithromax Z-Jose 250 mg Oral Tablet - take 1 tablet by ORAL route as directed for 5 days Day 1 - take two (2) tablets sp4 one time. Day 2, 3, 4 , 5 take one (1) tablet once daily.; 6 tablet; Refills: 0, Product Selection Permitted Signatures: Dispatcher [employer] Barbara Torres RN RN lg3 Eric Ma RN RN as6 Danita Lemons RN RN vc1 Jack Florez MD MD sp4 Corrections: (The following items were deleted from the chart) 01:46 01:17 Urinalysis+U.LAB.BRZ ordered. EDCT EDMS
[2022-06-23 05:47] VITALS: TEMP 98
[2022-06-23 05:51] VITALS: BP 101/65; O2SAT 99
--- NOTE | 2022-06-23 15:29 | RAD REPORT ---
EXAM DESCRIPTION: RAD - Chest Single View - 06/23/2022 1:48 am CLINICAL HISTORY: Chest pain.. TECHNIQUE: AP portable chest x-ray upright on 06/23/2022, at 01: 43. COMPARISON: None. FINDINGS: Heart: Normal size and configuration. Mediastinal Structures: Normal and midline.. Lung Phillip: No active disease. Pulmonary Vascularity: Normal. Pleural Space: No active disease. Bony Structures: Normal. IMPRESSION: Normal study. Electronically signed by: Valentin Dorantes MD 06/23/2022 1:55 AM [facility] Due to temporary technical issues with the PACS/Fluency reporting system, reports are being signed by the in house radiologists without review as a courtesy to insure prompt reporting. The interpreting radiologist is fully responsible for the content of the report.
--- NOTE | 2022-06-25 16:46 | EKG ---
Test Date: 2022-06-23 Test Time: 01:27:40 Managed Care Coordinator: MEASUREMENT RESULTS: Intervals: Rate: 109 MD: 186 QRSD: 82 QT: 324 QTc: 436 [place]: P: 58 MD: 186 QRS: 62 T: 10 INTERPRETIVE STATEMENTS: Sinus tachycardia Nonspecific T wave abnormality Abnormal ECG Compared to ECG 06/05/2022 13:08:08 T-wave abnormality now present Sinus rhythm no longer present Electronically Signed On 06-25-22 16:39:30 SCRAP SHEAR OPERATOR by Matthew Matias
--- NOTE | 2022-06-25 16:46 | EKG ---
Test Date: 2022-06-23 Test Time: 04:31:32 Him Manager: MEASUREMENT RESULTS: Intervals: Rate: 74 WA: 182 QRSD: 84 QT: 384 QTc: 426 [place]: P: 57 WA: 182 QRS: 52 T: 31 INTERPRETIVE STATEMENTS: Normal sinus rhythm Normal ECG Compared to ECG 06/23/2022 01:27:40 Sinus tachycardia no longer present T-wave abnormality no longer present Electronically Signed On 06-25-22 16:39:20 CHILD CARE by Matthew Matias
== END 2022-06-23 05:23 | disposition home or self-care (01) ==
LOC: ER 01:07
DX: K21.9 Gastro-esophageal reflux disease without esophagitis (principal); F41.9 Anxiety disorder, unspecified; J02.9 Acute pharyngitis, unspecified
CPT/HCPCS: 36415; 71045; 80048; 80076; 83690; 83880; 84484; 85025; 85379; 85610; 93005; 96374; 96375; 99284; J2405

== ENCOUNTER 2024-02-18 18:02 | Emergency (ER) | payer SELFPAY ==
--- NOTE | 2024-02-18 18:39 | EDPHYS ---
Physician Documentation [facility] Name: Heaven Sun Age: 48 yrs Sex: Female : 1975 Arrival Date: 02/18/2024 Time: 18:02 Bed DX4 Private MD: ED Physician Dany Godoy HPI: 02/17 18:50 This 48 yrs old Female presents to ER via Unassigned with complaints of kb Vaginal Pain. 18:50 Pt is a 48 year old female who presents for vaginal irritation and white discharge that kb started 5 days ago. States she has a history of yeast infections and this is exactly the same. Reports she is allergic to OTC treatment so she came in for diflucan. . 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 Flu vaccine is not up to date. - Infectious Disease History:: Denies. - Social history:: Smoking status: Patient denies any tobacco usage or history of. ROS: 18:50 Constitutional: As per HPI kb Exam: 18:50 Constitutional: This is a well developed, well nourished patient who is awake, alert, kb and in no acute distress. Head/Face: Normocephalic, atraumatic. ENT: Moist Mucous membranes Cardiovascular: Regular rate Respiratory: Respirations even and unlabored. No increased work of breathing. Talking in full sentences Abdomen/GI: Soft, non-tender. No distention Skin: Warm, dry with normal turgor. Normal color. MS/ Extremity: Pulses equal, no cyanosis. Neurovascular intact. Full, normal range of motion. Neuro: Awake and alert, GCS 15, oriented to person, place, time, and situation. Vital Signs: 19:11 BP 122 / 69; Pulse 82; Resp 14; Temp 98.2; Pulse Ox 100% ; Weight 72.57 kg; Height 5 vc1 ft. 2 in. ; 19:11 Body Mass Index 29.26 (72.57 kg, 157.48 cm) vc1 MDM: 18:05 Medical Screening Exam initiated kb 18:53 Differential diagnosis: urinary tract infection, vaginosis, candidiasis. Data reviewed: kb vital signs, nurses notes. Counseling: I had a detailed discussion with the patient and/or guardian regarding the historical points, exam findings, and any diagnostic results supporting the discharge/admit diagnosis, the need for outpatient follow up, an OB/Gyne specialist, to return to the emergency department if symptoms worsen or persist or if there are any questions or concerns that arise at home. Administered Medications: 19:10 Drug: Fluconazole PO 150 mg PO once Route: PO; vc1 19:18 Follow up: Response: Medication administered at discharge. vc1 Disposition Summary: 02/18/24 18:39 Discharge Ordered Notes: Location: Home kb Condition: Stable kb Diagnosis - Candidiasis of vulva and vagina kb Followup: kb - With: Emergency Department - When: As needed - Reason: Worsening of condition Followup: kb - With: Private Physician - When: 2 - 3 days - Reason: Recheck today's complaints, Continuance of care, Re-evaluation by your physician Discharge Instructions: - Discharge Summary Sheet kb - Vaginal Yeast Infection, Adult kb Forms: - Medication Reconciliation Form kb - Antibiotic Education kb - Prescription Opioid Use kb - Patient Portal Instructions kb - Leadership Thank You Letter kb Prescriptions: - Fluconazole 150 mg Oral tablet - take 1 tablet ORAL route one time take once, may repeat in 3 days if symptoms kb persist; 2 tablet; Refills: 0, Product Selection Permitted Signatures: Sabina Soto FNP-C FNP-Danita Perez RN RN vc1
[2024-02-18] MEDS ORDERED: FLUCONAZOLE 100 MG TAB ONE (18:57)
--- NOTE | 2024-02-18 19:18 | ER ---
Nurse's Notes [facility] Name: Heaven Sun Age: 48 yrs Sex: Female : 1975 Arrival Date: 02/18/2024 Time: 18:02 Bed DX4 Private MD: Diagnosis: Candidiasis of vulva and vagina Presentation: 02/17 19:11 Chief complaint: Patient states: I have a yeast infection, I get them all the time and vc1 can't take OTC medications. Coronavirus screen: Client denies travel out of the [place] in the last 14 days. At this time, the client does not indicate any symptoms associated with coronavirus-19. Ebola Screen: Patient negative for fever greater than or equal to 101.5 degrees Fahrenheit, and additional compatible Ebola Virus Disease symptoms Patient denies exposure to infectious person. Patient denies travel to an Ebola-affected area in the 21 days before illness onset. No symptoms or risks identified at this time. Initial Sepsis Screen: Does the patient meet any 2 criteria? No. Patient's initial sepsis screen is negative. Does the patient have a suspected source of infection? No. Patient's initial sepsis screen is negative. Risk Assessment: Do you want to hurt yourself or someone else? Patient reports no desire to harm self or others. Onset of symptoms was February 12, 2024. 19:11 Method Of Arrival: Ambulatory vc1 19:11 Acuity: ABIGAIL 4 vc1 Triage Assessment: 19:15 General: Appears in no apparent distress. uncomfortable, well groomed, well developed, vc1 well nourished, Behavior is calm, cooperative, appropriate for age. Pain: Denies pain. EENT: No deficits noted. No signs and/or symptoms were reported regarding the EENT system. Neuro: Level of Consciousness is awake, alert, obeys commands, Oriented to person, place, time, situation, Appropriate for age. Cardiovascular: Heart tones S1 S2 present Capillary refill < 3 seconds Patient's skin is warm and dry. Respiratory: Airway is patent Respiratory effort is even, unlabored, Respiratory pattern is regular, symmetrical, Breath sounds are clear bilaterally. GI: No deficits noted. No signs and/or symptoms were reported involving the gastrointestinal system. : Reports vaginal itching, since 6 days. Derm: Skin is intact, is healthy with good turgor, Skin is dry, Skin is normal, Skin temperature is warm. Musculoskeletal: Circulation, motion, and sensation intact. Range of motion: intact in all extremities. 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 Flu vaccine is not up to date. - Infectious Disease History:: Denies. - Social history:: Smoking status: Patient denies any tobacco usage or history of. Screenin:[address] [facility] ED Fall Risk Assessment (Adult) History of falling in the last 3 months, vc1 including since admission No falls in past 3 months (0 pts) Confusion or Disorientation No (0 pts) Intoxicated or Sedated No (0 pts) Impaired Gait No (0 pts) Mobility Assist Device Used No (0 pt) Altered Elimination No (0 pt) Score/Fall Risk Level 0 - 2 = Low Risk Oriented to surroundings, Maintained a safe environment, Educated pt \T\ family on fall prevention, incl call for assistance when getting out of bed. Abuse screen: Denies threats or abuse. Nutritional screening: No deficits noted. Tuberculosis screening: No symptoms or risk factors identified. Vital Signs: 19:11 BP 122 / 69; Pulse 82; Resp 14; Temp 98.2; Pulse Ox 100% ; Weight 72.57 kg; Height 5 vc1 ft. 2 in. ; 19:11 Body Mass Index 29.26 (72.57 kg, 157.48 cm) vc1 ED Course: 18:04 Patient arrived in ED. am2 18:05 Sabina Soto FNP-C is [facility]. kb 18:05 Dany Godoy MD is Attending Physician. kb 18:54 Danita Lemons, SILKE is Primary Nurse. vc1 19:14 Triage completed. vc1 19:15 Arm band placed on right wrist. vc1 19:16 No provider procedures requiring assistance completed. Patient did not have IV access vc1 during this emergency room visit. 19:17 Seen in diagnostic chair. Provided Education on: drink plenty of water. vc1 Administered Medications: 19:10 Drug: Fluconazole PO 150 mg PO once Route: PO; vc1 19:18 Follow up: Response: Medication administered at discharge. vc1 Medication: 19:15 VIS not applicable for this client. vc1 Outcome: 18:39 Discharge ordered by . danna 19:16 Discharged to home ambulatory, vc1 19:16 Condition: good 19:16 Discharge instructions given to patient, Instructed on discharge instructions, follow up and referral plans. medication usage, Demonstrated understanding of instructions, follow-up care, medications, Prescriptions given X 1, 19:18 Patient left the ED. vc1 Signatures: Sabina Soto, TANGELA-C TANGELA-Sherron Song Vanessa RN RN vc1
[2024-02-18 19:30] VITALS: BP 122/69; TEMP 98.2; O2SAT 100
== END 2024-02-18 19:18 | disposition home or self-care (01) ==
LOC: ER 18:02
DX: B37.31 Acute candidiasis of vulva and vagina (principal)

== ENCOUNTER 2024-05-05 14:21 | Emergency (ER) | payer SELFPAY ==
[2024-05-05] MEDS ORDERED: FLUCONAZOLE 100 MG TAB ONE (15:03)
--- NOTE | 2024-05-05 15:15 | ER ---
Nurse's Notes [facility] Name: Heaven Sun Age: 48 yrs Sex: Female : 1975 Arrival Date: 05/05/2024 Time: 14:21 Bed IW2 Private MD: Diagnosis: Candidiasis of vulva and vagina;Candidiasis, unspecified Presentation: 05/05 14:51 Chief complaint: Patient states: Vaginal itching and discharge onset last Saturday. Pt cm10 reports that the discharge is white. Coronavirus screen: Client denies travel out of the [place] in the last 14 days. Ebola Screen: Patient denies travel to an Ebola-affected area in the 21 days before illness onset. Initial Sepsis Screen: Does the patient meet any 2 criteria? No. Patient's initial sepsis screen is negative. Does the patient have a suspected source of infection? No. Patient's initial sepsis screen is negative. Risk Assessment: Do you want to hurt yourself or someone else? Patient reports no desire to harm self or others. Onset of symptoms was April 28, 2024. 14:51 Method Of Arrival: Ambulatory cm10 14:51 Acuity: ABIGAIL 4 cm10 Triage Assessment: 14:53 General: Appears in no apparent distress. uncomfortable, Behavior is calm, cooperative. cm10 Pain: Complains of pain in vagina Pain currently is 3 out of 10 on a pain scale. Neuro: No deficits noted. Level of Consciousness is awake, alert, obeys commands, Oriented to person, place, time, situation, Appropriate for age. Respiratory: No deficits noted. Airway is patent Respiratory effort is even, unlabored, Respiratory pattern is regular, symmetrical. : Reports discharge, white, vaginal itching. 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 - Infectious Disease History:: Denies. - Social history:: Smoking status: Patient denies any tobacco usage or history of. Screenin:57 [facility] ED Fall Risk Assessment (Adult) History of falling in the last 3 months, cm10 including since admission No falls in past 3 months (0 pts) Confusion or Disorientation No (0 pts) Intoxicated or Sedated No (0 pts) Impaired Gait No (0 pts) Mobility Assist Device Used No (0 pt) Altered Elimination No (0 pt) Score/Fall Risk Level 0 - 2 = Low Risk Oriented to surroundings, Maintained a safe environment, Hourly rounding (assess needs \T\ fall precautionary measures) done. Abuse screen: Denies threats or abuse. Denies injuries from another. Nutritional screening: No deficits noted. Tuberculosis screening: No symptoms or risk factors identified. Vital Signs: 14:51 BP 113 / 86; Pulse 79; Resp 15; Temp 98.3; Pulse Ox 100% on R/A; Weight 72.57 kg; cm10 Height 5 ft. 2 in. ; Pain 3/10; 14:51 Body Mass Index 29.26 (72.57 kg, 157.48 cm) cm10 14:51 Pain Scale: Adult cm10 ED Course: 14:24 Patient arrived in ED. 14:29 Robb Pickett MD is Attending Physician. [facility] 14:52 Triage completed. cm10 14:52 Arm band placed on right wrist. Patient placed in waiting room. cm10 14:57 Patient has correct armband on for positive identification. Provided Education on: ER cm10 process and procedures.. 14:58 No provider procedures requiring assistance completed. Patient did not have IV access cm10 during this emergency room visit. Administered Medications: 15:05 Drug: Fluconazole PO 200 mg PO once Route: PO; cm10 15:37 Follow up: Response: No adverse reaction cm10 Medication: 14:57 VIS not applicable for this client. cm10 Outcome: 15:14 Discharge ordered by . [facility] 15:37 Discharged to home ambulatory, cm10 15:37 Condition: good 15:37 Discharge instructions given to patient, Instructed on discharge instructions, follow up and referral plans. medication usage, Demonstrated understanding of instructions, follow-up care, medications, Prescriptions given X 1, 15:37 Patient left the ED. cm10 Signatures: Robb Pickett MD MD cha Mendoza, Itzel im Martinez, Clarissa, RN RN cm10
--- NOTE | 2024-05-05 15:15 | EDPHYS ---
Physician Documentation [facility] Name: Heaven Sun Age: 48 yrs Sex: Female : 1975 Arrival Date: 05/05/2024 Time: 14:21 Bed IW2 Private MD: GLENNY Physician Robb Pickett HPI: 05/05 15:10 This 48 yrs old Female presents to ER via Ambulatory with complaints of osmin Vaginal Discharge. 15:10 The patient presents with vaginal discharge, patient has had similar discharge in the osmin past, many times. Onset: The symptoms/episode began/occurred 3 day(s) ago. Modifying factors: The symptoms are alleviated by nothing, the symptoms are aggravated by nothing. Associated signs and symptoms: The patient has no apparent associated signs or symptoms. Severity of symptoms: At their worst the symptoms were mild, moderate, in the emergency department the symptoms are unchanged. The patient is sexually active, reportedly has a single partner. The patient has experienced similar episodes in the past, multiple times. 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 - Infectious Disease History:: Denies. - Social history:: Smoking status: Patient denies any tobacco usage or history of. ROS: 15:10 Constitutional: Negative for fever, chills, and weight loss, Eyes: Negative for injury, osmin pain, redness, and discharge, ENT: Negative for injury, pain, and discharge, Neck: Negative for injury, pain, and swelling, Cardiovascular: Negative for chest pain, palpitations, and edema, Respiratory: Negative for shortness of breath, cough, wheezing, and pleuritic chest pain, Abdomen/GI: Negative for abdominal pain, nausea, vomiting, diarrhea, and constipation, Back: Negative for injury and pain, MS/Extremity: Negative for injury and deformity, Skin: Negative for injury, rash, and discoloration, Neuro: Negative for headache, weakness, numbness, tingling, and seizure, Psych: Negative for depression, anxiety, suicide ideation, homicidal ideation, and hallucinations, Allergy/Immunology: Negative for hives, rash, and allergies, Endocrine: Negative for neck swelling, polydipsia, polyuria, polyphagia, and marked weight changes, Hematologic/Lymphatic: Negative for swollen nodes, abnormal bleeding, and unusual bruising, 15:10 : Positive for vaginal itching, Exam: 15:10 Constitutional: This is a well developed, well nourished patient who is awake, alert, osmin and in no acute distress. Head/Face: Normocephalic, atraumatic. Eyes: Pupils equal round and reactive to light, extra-ocular motions intact. Lids and lashes normal. Conjunctiva and sclera are non-icteric and not injected. Cornea within normal limits. Periorbital areas with no swelling, redness, or edema. ENT: Nares patent. No nasal discharge, no septal abnormalities noted. Tympanic membranes are normal and external auditory canals are clear. Oropharynx with no redness, swelling, or masses, exudates, or evidence of obstruction, uvula midline. Mucous membranes moist. Neck: Trachea midline, no thyromegaly or masses palpated, and no cervical lymphadenopathy. Supple, full range of motion without nuchal rigidity, or vertebral point tenderness. No Meningismus. Chest/axilla: Normal chest wall appearance and motion. Nontender with no deformity. No lesions are appreciated. Cardiovascular: Regular rate and rhythm with a normal S1 and S2. No gallops, murmurs, or rubs. Normal PMI, no JVD. No pulse deficits. Respiratory: Lungs have equal breath sounds bilaterally, clear to auscultation and percussion. No rales, rhonchi or wheezes noted. No increased work of breathing, no retractions or nasal flaring. Abdomen/GI: Soft, non-tender, with normal bowel sounds. No distension or tympany. No guarding or rebound. No evidence of tenderness throughout. Back: No spinal tenderness. No costovertebral tenderness. Full range of motion. Skin: Warm, dry with normal turgor. Normal color with no rashes, no lesions, and no evidence of cellulitis. MS/ Extremity: Pulses equal, no cyanosis. Neurovascular intact. Full, normal range of motion., bilateral aka Neuro: Awake and alert, GCS 15, oriented to person, place, time, and situation. Cranial nerves II-XII grossly intact. Motor strength 5/5 in all extremities. Sensory grossly intact. Cerebellar exam normal. Normal gait. Psych: Awake, alert, with orientation to person, place and time. Behavior, mood, and affect are within normal limits. Vital Signs: 14:51 BP 113 / 86; Pulse 79; Resp 15; Temp 98.3; Pulse Ox 100% on R/A; Weight 72.57 kg; cm10 Height 5 ft. 2 in. ; Pain 3/10; 14:51 Body Mass Index 29.26 (72.57 kg, 157.48 cm) cm10 14:51 Pain Scale: Adult cm10 MDM: 14:29 Medical Screening Exam initiated [facility] 15:11 Differential diagnosis: urinary tract infection, vaginosis. Data reviewed: vital signs, [facility] nurses notes. Consideration of Admission/Observation Escalation of care including admission/observation considered. I considered the following discharge prescriptions or medication management in the emergency department Medications were administered in the Emergency Department. See MAR. Test considered but Not performed: Labs: NO CBC , NO COMP MET. Historians other than the Patient: PT WELL INFORMED. Care significantly affected by the following chronic conditions: NONE. Administered Medications: 15:05 Drug: Fluconazole PO 200 mg PO once Route: PO; cm10 15:37 Follow up: Response: No adverse reaction cm10 Disposition Summary: 05/05/24 15:14 Discharge Ordered Notes: Location: Home [facility] Problem: new [facility] Symptoms: have improved [facility] Condition: Stable [facility] Diagnosis - Candidiasis of vulva and vagina [facility] - Candidiasis, unspecified [facility] Followup: [facility] - With: Private Physician - When: 2 - 3 days - Reason: Recheck today's complaints, Continuance of care, Re-evaluation by your physician Discharge Instructions: - Discharge Summary Sheet [facility] - Vaginal Yeast Infection, Adult [facility] Forms: - Medication Reconciliation Form [facility] - Antibiotic Education [facility] - Prescription Opioid Use [facility] - Patient Portal Instructions [facility] - Leadership Thank You Letter [facility] Prescriptions: - Fluconazole 200 mg Oral tablet - take 1 tablet ORAL route once wkly NEEDED FOR YEAST SYMPTOMS; 3 tablet; [facility] Refills: 0, Product Selection Permitted Signatures: Robb Pickett MD MD cha Martinez, Clarissa RN RN cm10
[2024-05-08 01:26] VITALS: BP 113/86; TEMP 98.3; O2SAT 100
== END 2024-05-05 15:37 | disposition home or self-care (01) ==
LOC: ER 14:21
DX: B37.31 Acute candidiasis of vulva and vagina (principal)
CPT/HCPCS: 99283

== ENCOUNTER 2024-07-14 12:42 | Emergency (ER) | payer SELFPAY ==
--- NOTE | 2024-07-14 13:00 | EDPHYS ---
Physician Documentation [facility] Name: Heaven Sun Age: 49 yrs Sex: Female : 1975 Arrival Date: 07/14/2024 Time: 12:42 Bed IW2 Private MD: ED Physician Giovani Joya HPI: 07/14 12:58 This 49 yrs old Female presents to ER via Unassigned with complaints of Rash. kb 12:58 Pt is a 49 year old female who presents for rash to face that started 1 month ago. kb Reports itching and now it is spreading to chest. States the rash seemed to get better with benadryl, but got worse again yesterday. . 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 - Infectious Disease History:: Denies. - Social history:: Smoking status: Patient denies any tobacco usage or history of. ROS: 12:58 Constitutional: As per HPI kb Exam: 12:58 Constitutional: This is a well developed, well nourished patient who is awake, alert, kb and in no acute distress. Head/Face: Normocephalic, atraumatic. ENT: Moist Mucous membranes Cardiovascular: Regular rate Respiratory: Respirations even and unlabored. No increased work of breathing. Talking in full sentences MS/ Extremity: Pulses equal, no cyanosis. Neurovascular intact. Full, normal range of motion. Neuro: Awake and alert, GCS 15, oriented to person, place, time, and situation. 12:58 Skin: rash a mild rash is noted, consistent with contact dermatitis, Vital Signs: 13:09 BP 124 / 75; Pulse 86; Resp 18; Temp 97.9; Pulse Ox 100% ; Weight 74.84 kg; Height 5 me1 ft. 2 in. ; Pain 0/10; 13:09 Body Mass Index 30.18 (74.84 kg, 157.48 cm) me1 13:09 Pain Scale: Adult me1 MDM: 12:55 Medical Screening Exam initiated kb 12:59 Differential diagnosis: impetigo, allergic reaction, parasite infection. Data reviewed: kb vital signs, nurses notes. Counseling: I had a detailed discussion with the patient and/or guardian regarding the historical points, exam findings, and any diagnostic results supporting the discharge/admit diagnosis, the need for outpatient follow up, a family practitioner, to return to the emergency department if symptoms worsen or persist or if there are any questions or concerns that arise at home. Administered Medications: 13:09 Drug: Famotidine PO 20 mg PO once Route: PO; me1 13:16 Follow up: Response: No adverse reaction me1 13:09 Drug: predniSONE PO 40 mg PO once Route: PO; me1 13:15 Follow up: Response: No adverse reaction me1 Disposition Summary: 07/14/24 12:59 Discharge Ordered Notes: Location: Home kb Condition: Stable kb Diagnosis - Rash and other nonspecific skin eruption kb Followup: kb - With: Emergency Department - When: As needed - Reason: Worsening of condition Followup: kb - With: Private Physician - When: 2 - 3 days - Reason: Recheck today's complaints, Continuance of care, Re-evaluation by your physician Discharge Instructions: - Discharge Summary Sheet kb - Rash, Adult, [id number] kb Forms: - Medication Reconciliation Form kb - Antibiotic Education kb - Prescription Opioid Use kb - Patient Portal Instructions kb - Leadership Thank You Letter kb Prescriptions: - Pepcid 20 mg Oral Tablet - take 1 tablet ORAL route every 12 hours for 5 days; 10 tablet; Refills: 0, kb Product Selection Permitted - Prednisone 20 mg Oral Tablet - take 1 tablet ORAL route once daily for 5 days; 5 tablet; Refills: 0, Product kb Selection Permitted Addendum: 07/15/2024 14:45 I was immediately available for consultation during this patient's visit. I did not e c2 personally see the patient or discuss the patient with the OLIVIA. . Signatures: Sabina Soto FNP-C FNP-Alta Mayo RN RN me1 Giovani Joya MD MD ec2
[2024-07-14] MEDS ORDERED: FAMOTIDINE 20 MG TAB ONE (13:08)
[2024-07-14] MEDS ORDERED: predniSONE 20 MG TAB ONE (13:08)
--- NOTE | 2024-07-14 13:15 | ER ---
Nurse's Notes [facility] Name: Heaven Sun Age: 49 yrs Sex: Female : 1975 Arrival Date: 07/14/2024 Time: 12:42 Bed IW2 Private MD: Diagnosis: Rash and other nonspecific skin eruption Presentation: 07/14 13:09 Chief complaint: Patient states: rash to face for about a month, started coming up on me1 her chest recently. Red, raised, itchy. Coronavirus screen: Vaccine status: Patient reports being unvaccinated. Ebola Screen: No symptoms or risks identified at this time. Initial Sepsis Screen: Does the patient meet any 2 criteria? No. Patient's initial sepsis screen is negative. Does the patient have a suspected source of infection? No. Patient's initial sepsis screen is negative. Risk Assessment: Do you want to hurt yourself or someone else? Patient reports no desire to harm self or others. Onset of symptoms is unknown. 13:09 Method Of Arrival: [facility] 13:09 Acuity: ABIGAIL 5 me1 Triage Assessment: 13:11 General: Appears in no apparent distress. well groomed, well developed, well nourished, me1 Behavior is calm, cooperative, appropriate for age, Reports rash to face and chest. Pain: Denies pain. EENT: No signs and/or symptoms were reported regarding the EENT system. Neuro: Level of Consciousness is awake, alert, obeys commands, Oriented to person, place, time, situation, Appropriate for age. Cardiovascular: Patient's skin is warm and dry. Respiratory: Airway is patent Respiratory effort is even, unlabored, Respiratory pattern is regular, symmetrical. GI: No signs and/or symptoms were reported involving the gastrointestinal system. : No signs and/or symptoms were reported regarding the genitourinary system. Derm: Skin is healthy with good turgor, Skin is pink, warm \T\ dry. Rash noted that is red, raised, on head and chest. Musculoskeletal: No signs and/or symptoms reported regarding the musculoskeletal system. 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 - Infectious Disease History:: Denies. - Social history:: Smoking status: Patient denies any tobacco usage or history of. Screenin:13 [facility] ED Fall Risk Assessment (Adult) History of falling in the last 3 months, me1 including since admission No falls in past 3 months (0 pts) Confusion or Disorientation No (0 pts) Intoxicated or Sedated No (0 pts) Impaired Gait No (0 pts) Mobility Assist Device Used No (0 pt) Altered Elimination No (0 pt) Score/Fall Risk Level 0 - 2 = Low Risk Maintained a safe environment, Provided non-skid footwear, Hourly rounding (assess needs \T\ fall precautionary measures) done. Abuse screen: Denies threats or abuse. Nutritional screening: No deficits noted. Tuberculosis screening: No symptoms or risk factors identified. Assessment: 13:13 General: See triage assessment. me1 Vital Signs: 13:09 BP 124 / 75; Pulse 86; Resp 18; Temp 97.9; Pulse Ox 100% ; Weight 74.84 kg; Height 5 me1 ft. 2 in. ; Pain 0/10; 13:09 Body Mass Index 30.18 (74.84 kg, 157.48 cm) me1 13:09 Pain Scale: Adult wi1 ED Course: 12:48 Patient arrived in ED. cj3 12:55 Sabina Soto FNP-C [facility]. kb 12:55 Giovani Joya MD is Attending Physician. kb 13:05 Alta Méndez RN is Primary Nurse. me1 13:10 Triage completed. me1 13:11 Arm band placed on Patient placed in an exam room. me1 13:13 Patient has correct armband on for positive identification. Provided Education on: POC. me1 Verbalized understanding.. Client placed on continuous cardiac and pulse oximetry monitoring. NIBP monitoring applied. Pulse ox on. NIBP on. 13:13 No provider procedures requiring assistance completed. Patient did not have IV access me1 during this emergency room visit. Administered Medications: 13:09 Drug: Famotidine PO 20 mg PO once Route: PO; me1 13:16 Follow up: Response: No adverse reaction me1 13:09 Drug: predniSONE PO 40 mg PO once Route: PO; me1 13:15 Follow up: Response: No adverse reaction me1 Medication: 13:13 VIS not applicable for this client. me1 Outcome: 12:59 Discharge ordered by . danna 13:14 Discharged to home ambulatory, me1 13:14 Condition: stable 13:14 Discharge instructions given to patient, Instructed on discharge instructions, follow up and referral plans. medication usage, Demonstrated understanding of instructions, follow-up care, medications, Prescriptions given X 2, 13:15 Patient left the ED. me1 Signatures: Sabina Soto, CREPING MACHINE OPERATOR-C CREPING MACHINE OPERATOR-Alta Mayo, RN RN me1 Tash Calvin cj3
[2024-07-14 13:24] VITALS: BP 124/75; TEMP 97.9; O2SAT 100
== END 2024-07-14 13:15 | disposition home or self-care (01) ==
LOC: ER 12:42
DX: R21 Rash and other nonspecific skin eruption (principal)
CPT/HCPCS: J7512